=== PATIENT | male | born 1960 | race Caucasian/White ===

== ENCOUNTER 2019-09-06 10:37 | Outpatient (CLI) | payer OTHER, SELFPAY ==
--- NOTE | 2019-09-06 10:42 | CT_ITS ---
WS: [id number] CTA THORACIC TECHNIQUE: Contrast enhanced CTA of the thoracic aorta with coronal and sagittal reformatted images a nd maximum intensity projection (MIP) images. CLINICAL INFORMATION: THORACIC AORTIC ANEURYSM COMPARISON: CT chest 2018 DLP: 1518.[address] scans at [facility] use at least one of these dose optimization techniques: automat ed exposure control; mA and/or kV adjustment per patient size (includes targeted exams where dose is matched to clinical indication); or iterative reconstruction. FINDINGS: Noncontrast thoracic aorta is normal. No evidence of aortic dissection or intramural hematoma. Normal caliber thoracic aorta. Ascending thoracic aorta measures 3.8 x 3.9 CM. Aortic calcification. This i s unchanged since the outside CT from 2019. Mild aortic atheromatous disease. Coronary calcification. Great vessel origins are normal. No mediastinal or hilar lymphadenopathy. A few normal sized anterior mediastinal and peribronchial lymph nodes. Mild chronic emphysematous changes. Subsegmental atelecta sis right lung base. Fibrosis right lower lobe medially. Adrenal glands are normal. Mild diffuse fatt y infiltration the liver. Normal GE junction. Mild thoracic curve with thoracic kyphosis. Hypertrophi c changes thoracic spine. Tiny left renal cyst. CT/CT angio chest [id number] IMPRESSION: 1. Normal caliber thoracic aorta. Ascending thoracic aorta measures 3.8 x 3.9 cm this is AP by transverse. 2. Normal caliber descending thoracic aorta. 3. Mild aortic calcification with coronary calcification. 4. Mild chronic emphysematous changes. Subsegmental atelectasis right lung bas e. 5. No mediastinal or hilar lymphadenopathy. 6. Hypertrophic changes thoracic spine.
[2019-09-06] MEDS: iohexol 350 mg/mL 100 mL Btl IV (11:37)
== END 2019-09-06 10:38 | disposition home or self-care (01) ==
PROVIDERS: Family Provider Internal Medicine; PCP Internal Medicine; Visit Provider Thoracic Surgery (Cardiothoracic Vascular Surgery)
DX: I71.2 Thoracic aortic aneurysm, without rupture (principal); I70.0 Atherosclerosis of aorta
CPT/HCPCS: 71275; Q9967

== ENCOUNTER 2021-03-14 20:54 | Emergency (ER) | payer OTHER, SELFPAY ==
[2021-03-14 20:55] VITALS: BP 187/108; PULSE 76; RESP 18; TEMP 36.8; O2SAT 94; BMI 36.2
[2021-03-14 21:10] VITALS: BP 182/107; PULSE 78; O2SAT 96
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
[2021-03-14 21:32] LABS: Basophils # 0.1 10^3/uL (0.0-0.1); Basophils % 0.6 %; Eosinophils # 0.3 10^3/uL (0.0-0.8); Eosinophils % 2.3 %; Hematocrit 44.1 % (42.0-52.0); Hemoglobin 13.9 g/dL (11.7-16.6); Lymphocytes # 2.5 10^3/uL (0.8-4.8); Lymphocytes % 23.2 %; Mean Corpuscular HGB Conc 31.5 g/dL (30.0-36.0); Mean Corpuscular Hemoglobin 29.9 pg (28.0-34.0); Mean Corpuscular Volume 94.8 fl (80-94); Mean Platelet Volume 9.9 fL (7.4-10.4); Monocytes # 0.5 10^3/uL (0.2-0.9); Monocytes % 4.3 %; Neutrophils # 7.11 10^3/uL (1.8-7.7); Neutrophils % 65.8 %; Nucleated Red Blood Cells % 0 %; Platelet Count 256 10^3/cmm (130-400); Red Blood Count 4.65 10^6/uL (4.1-5.3); Red Cell Distribution Width 13.3 % (12.1-15.1); White Blood Count 10.8 10^3/uL (4.0-10.0)
[2021-03-14] MEDS: ondansetron 2 mg/ML SDV 2 mL 4 MG IVP (21:35)
[2021-03-14] MEDS: morphine 4 mg/mL SDV 1 mL IVP (21:35)
[2021-03-14 21:39] VITALS: BP 184/114; PULSE 73; O2SAT 95
[2021-03-14 21:43] LABS: Alanine Aminotransferase 15 U/L (0-41); Albumin Level 4.1 g/dL (3.5-5.2); Alkaline Phosphatase 87 IU/L (40-130); Anion Gap 14.8 (5-19); Aspartate Amino Transferase 17 U/L (0-40); Blood Urea Nitrogen 13 mg/dL (8-23); Calcium 8.3 mg/dL (8.5-10.5); Carbon Dioxide 22 mmol/L (22-29); Chloride 107 mmol/L (98-107); Globulin 3.2 g/dL (1.3-4.6); Glomerular Filtration Rate 86.1 mL/min (90-130); Glucose 117 mg/dL (65-115); Osmolality Calculated 291 mOsm/kg (285-295); Potassium 3.8 mmol/L (3.5-5.1); Sodium 140 mmol/L (136-145); Total Bilirubin 0.2 mg/dL (0.15-1.2); Total Protein 7.3 g/dL (6.6-8.7)
[2021-03-14 21:45] LABS: Alcohol Level < 10 mg/dL (0-10)
[2021-03-14] MEDS: iohexol 300 mg/mL 100 mL Btl IV (22:19)
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
[2021-03-14 23:03] VITALS: BP 170/135; PULSE 74; O2SAT 93
[2021-03-14 23:19] VITALS: BP 170/135; PULSE 73; O2SAT 94
== END 2021-03-14 23:21 | disposition home or self-care (01) ==
PROVIDERS: Emergency Provider Emergency Medicine
DX: S06.0X1A Concussion with loss of consciousness of 30 minutes or less, initial encounter (principal); S00.01XA Abrasion of scalp, initial encounter; Z79.82 Long term (current) use of aspirin; F17.210 Nicotine dependence, cigarettes, uncomplicated; V89.2XXA Person injured in unspecified motor-vehicle accident, traffic, initial encounter
CPT/HCPCS: 70450; 71260; 72125; 74177; 80053; 80307; 85025; 96374; 96375; 99283; J2270; J2405; Q9967

== ENCOUNTER 2021-12-03 16:31 | Emergency (ER) | payer OTHER, SELFPAY ==
[2021-12-03 16:41] VITALS: BP 154/86; PULSE 64; RESP 16; TEMP 36.7; O2SAT 98
[2021-12-03 16:53] VITALS: BP 143/95; PULSE 65; RESP 18; O2SAT 96
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
--- NOTE | 2021-12-04 15:38 | DCPLANNER ---
Addendum entered by Johanna Lewis 12/24/21 09:06: senior category manager received the following message from the neurology clinic regarding follow up appointment: Patient told me that he didn't have any memory problems only a hip replacement. We had him scheduled with Ruben on 12/19/21 @ 8:30 am. We have cancelled it. Addendum entered by Johanna Lewis 12/12/21 12:22: Patient has a follow up appointment scheduled for Sunday, December 19, 2021 at 8:30 with Ruben at neurology. Clinic will call patient with appointment information. Original Note: senior category manager had message to schedule a follow up appointment for patient neurology. senior category manager sent patients information to the front office staff at neurology. Patients information will be printed and reviewed. Clinic will call patient with appointment informatin. senior category manager also had message to schedule an outpatient MRI for patient. senior category manager cannot order the MRI for patient due to patient having [employer] insurance. senior category manager did refer patient to neurology, if the neurologist wants patient to have the MRI, it can be ordered from the neurologist. senior category manager did send patients information to the [place] for the authorization to be started.
== END 2021-12-03 17:50 | disposition home or self-care (01) ==
PROVIDERS: Emergency Provider Family Medicine
DX: R41.3 Other amnesia (principal); G44.89 Other headache syndrome; I10 Essential (primary) hypertension; F17.210 Nicotine dependence, cigarettes, uncomplicated
CPT/HCPCS: 99282

== ENCOUNTER 2022-04-12 09:19 | Emergency (ER) | payer OTHER, SELFPAY ==
[2022-04-12 09:26] VITALS: BP 152/95; PULSE 91; RESP 18; TEMP 36; O2SAT 94
[2022-04-12] MEDS: oxymetazoline 0.05% Nasal Spray 15 mL 2 SPRAY NOSTRIL-B (10:08)
[2022-04-12] MEDS: lidocaine 4% PF 5 mL INJ INJECTION (10:08)
[2022-04-12] MEDS: silver nitrate applicator 1 EACH TOPICAL (10:08)
--- NOTE | 2022-04-12 23:41 | ED_ITS ---
HPI - General Adult General: Chief complaint: General Medical Stated complaint: nose bleed Time Seen by Provider: 04/12/22 09:30 History of Present Illness: 61 yo male patient presents to ER with nose bleed pt states it started early this am. Pt arrives bleeding very minimal. Pt den ies any dizziness. Pt states he has allergies and has been in and out of the cold. pt denies any headache or any other complaints. Associated symptoms: Deny chest pain, confusion, diaphoresis, dyspnea, headache(s), malaise, nausea, rash, palpitations, syncope or vomiting Review of Systems Const: Denies: fever(s), chills, body aches, change in appetite, change in weight, fatigue, malaise or diaphoresis Eyes: Denies: change in vision, blurry vision, blind spots, photophobia, eye discomfort, eye discharge, eye redness, floaters or seeing flashes ENMT: Denies: throat pain, uvular edema, enlarged tonsils, odynophagia, hoarse ness, mouth pain, swelling of lips/tongue, oral sores, bleeding gums, dental pain, dry mouth, ear or mastoid pain, ear discharge, change in hearing, tinnitus, disequilibrium, nasal congestion, post nasal drip or sinus pain Card: Denies: chest pain, palpitations, irregular heart rhythm, edema, swelling of feet/ankles, lightheadedness, syncope, pre-syncope, dyspnea on e xertion, orthopnea, leg pain with exertion or acrocyanosis Resp: Denies: dyspnea, productive cough, non-productive cough, wheezing, stridor, pain on inspiration, change in phlegm color, hemoptysis or chest congestion GI: Denies: abdominal pain, nausea, vomiting, hematemesis, dysphagia, diarrhea, constipation, GI cramping, change in bowel habits or rectal pain : Denies: flank pain, dysuria, urinary frequency, urinary urgency, urinary hesitancy or hematuria Musc: Denies: neck pain, back pain, extremity pain, extremity swelling, joint pain, joint swelling, joint redness, joint warmth or deformity Skin/Breast: Denies: rash, pruritus, erythema, sores, new lesions, changes in skin color or dry skin Neuro: Denies: headache(s), numbness in extremities, weakness in extremities, sensory changes, lack of coordination, difficulty walking, frequent falls, dizziness, vertigo, confusion, behavioral changes, Slurred speech present, difficulty communicating thoughts or seizure-like activity Psych: Denies: anxiety, depression, suicidal ideation or homicidal ideation Endo: Denies: polyuria, polydipsia, tired all the time, cold intolerance, excessive sweating, flushing, hot flashes or heat intolerance Ibrahima/Lymph: Denies: easy bruising, easy bleeding, petechiae, purpura, enlarged lymph nodes or tender lymph nodes All/Imm: Denies: urticaria, throat swelling, tongue swelling, facial swelling, acute wheezing or itchy eyes PFSH ED PFSH: Medical History Hypertension Thoracic aortic aneurysm Thoracic aortic aneurysm without rupture Surgical History No pertinent past surgical history Family History Mother Diabetes Father Hypertension Social History Smoking and tobacco status: current every day smoker cigarettes Packs smoked per day: 0.5 Alcohol intake: current Alcohol intake frequency: 0-2 Drinks per Day Lives independently: Yes Household members: none Marital status: service: Yes Current occupational status: disabled Physical Exam Const: COMMON NORMALS: no acute distress, average body habitus, patient oriented x3, no limitations, healthy appearing, alert and well nourished HENMT: COMMON NORMALS: normocephalic, atraumatic, hearing grossly normal bilaterally, external ears normal, EAC's normal, TM's normal bilaterally, Normal external nose present and moist oral mucous membranes; nasal mucous membranes&turbinates abnorm (posterior left side nosebleed) HEAD & SCALP: normocephalic and atraumatic NOSE: Normal external nose present; nasal mucous membranes&turbinates abnorm (posterior left side nosebleed) EXTERNAL EAR: Yes external ears normal EXTERNAL AUDITORY CANAL: EAC's normal TYMPANIC MEMBRANE: TM's normal bilaterally THROAT: no uvular edema Eye: COMMON NORMALS: Equal, round and reactive pupils present PUPIL: Yes Equal, round and reactive pupils present Neck/C-Spine: COMMON NORMALS: full ROM and no lymphadenopathy Resp: COMMON NORMALS: normal respiratory effort Cardio: COMMON NORMALS: regular rate and regular rhythm RATE: regular rate RHYTHM: regular rhythm Neuro: COMMON NORMALS: patient oriented x3 SENSORIUM/ORIENTATION: Yes alert Skin: NARRATIVE SKIN EXAM: pink warm and dry Course Vital Signs: Vital signs: Vital Signs Temperature 96.8 F L 04/12/22 09:26 Pulse Rate 91 04/12/22 09:26 Respiratory Rate 18 04/12/22 09:26 Blood Pressure 152/95 04/12/22 09:26 Pulse Oximetry 94 04/12/22 09:26 MDM - General Adult Medical Decision Making Patient is well appearing non toxic and in no acute distress. 61 yo male patient presents to ER with nose bleed pt states it started early this am. Pt arrives bleeding very minimal. Pt denies any dizziness. Pt states he has allergies and has been in and out of the cold. pt denies any headache or any other complaints. Nasal tampon was applied with direct pressure. pt was observed for 30 minutes. Bleeding has stopped with no residual bleeding at this time. I discussed with patient home care as well as return precautions Discharge Plan Discharge Patient Disposition: Home Clinical Impression: Acute posterior epistaxis Condition: Stable Prescriptions: No Action amlodipine 5 mg tablet 5 mg PO DAILY aspirin 325 mg tablet 325 mg PO DAILY Discharge Orders: Discharge ED (Routine); Ordered 04/12/22 Ordered By: Lisa Guerra Referrals: [facility] [Primary Care Provider] - Discharge Diet: Advance as tolerated Discharge Activity: Increase activity as tolerated Patient Instructions: Nosebleed (ED), Opioid Safety, Pain Management Activity Restrictions/Additional Instructions: Please follow discharge instructions Please leave nasal tampon in place for 24 hours Nothing inside the nose Return to ER with any continued bleeding or concerns Coding Level of Care Code ED Clothes Designer for Navdeep Barlow
== END 2022-04-12 12:20 | disposition home or self-care (01) ==
PROVIDERS: Emergency Provider Registered Nurse
DX: R04.0 Epistaxis (principal); Z79.82 Long term (current) use of aspirin; I10 Essential (primary) hypertension; F17.210 Nicotine dependence, cigarettes, uncomplicated
CPT/HCPCS: 99283

== ENCOUNTER → 2024-05-23 13:36 | Outpatient (BNVA) | payer OTHER, SELFPAY | PROVIDERS: Visit Provider Internal Medicine Cardiovascular Disease | DX: R07.9 Chest pain, unspecified (principal) | CPT/HCPCS: 93005 ==

== ENCOUNTER 2024-06-05 06:48 | Outpatient (CLI) | payer OTHER, SELFPAY ==
[2024-06-05 07:34] VITALS: BMI 37.9
--- NOTE | 2024-06-05 07:37 | ECG_ITS ---
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 The perfusion scan will be documented separately. DATA: Baseline heart rate was 48 beats per minute. Baseline blood pressure was 156/90 millimeters of mercury. Target heart rate was 157. Maximum heart rate achieved was 67. which was 42% of the predicted target heart rate. Maximum blood pressure was 156/90 millimeters of mercury. The reason for ending the test was completion of the protocol. The patient did not experience any symptoms. ELECTROCARDIOGRAM: BASELINE: Sinus bradycardia normal axis. Otherwise, no ST-T changes suggestive of ischemia noted. No arrhythmia noted. EXERCISE: After Lexiscan injection, no ST-T changes suggestive of ischemic noted. No arrhythmia noted. CONCLUSION: Please note due to baseline abnormality of the EKG specificity and sensitivity of the EKG portion of LexiScan MIBI stress test will be low 1. EKG not suggestive of ischemia 2. Lexiscan injection unremarkable. 3. Perfusion scan will be documented separately. Electronically Signed On 06-25-2024 18:53:57 CDT by TEO THOMAS [email or web address]
--- NOTE | 2024-06-05 07:37 | NMCV_ITS ---
NM dov perf SPECT r/s* [id number] Ruben Fuchs Jr Age: 63 Gender: M : 1960 Exam Date: 06/05/2024 07:58 Ordering Phys: Teo Thomas MD ([email or web address]) Technologist: NIKKO Becerril Exam Location: [facility] [place] Indications: cp STRESS TEST [facility] IMAGE PROTOCOL Rest/Stress 1 Lexiscan Day Radiopharmaceutical Dose (mCi) Administration Site Administered by Rest: Tc-99m 10.7 IV Julee Tena AUTOMOTIVE PAINTER HELPER Sestamibi Stress:Tc-99m 33 IV Julee Tena, AUTOMOTIVE PAINTER HELPER Sestamibi Rest: 05-Jun-2024 60 Discovery 630 Stress: 05-Jun-2024 30 Discovery 630 0.4mg Lexiscan. Images obtained in supine and prone position. SPECT RESULTS Technical Quality: Good Raw Data Analysis: Normal Image Corrections: No attenuation or motion correction applied Summed Stress Score: 0 Summed Rest Score: 2 Summed Difference Score: 0 PERFUSION FINDINGS SPECT images demonstrate homogeneous tracer distribution throughout the myocardium. Attenuation artifact seen in the inferior wall. FUNCTIONAL RESULTS (calculated via Gated SPECT) Stress Image LV EF (%): 69 Stress EDV (mL):136 TID: 0.93 Stress ESV (mL):42 FUNCTIONAL FINDINGS: There is normal left ventricular systolic function. IMPRESSIONS 1. Normal myocardial perfusion imaging with no evidence of ischemia. 2. LV systolic function is normal Aldair Fortune MD (Electronically Signed) Final Date: 05 June 2024 11:14 S
[2024-06-05] MEDS: regadenoson 0.4 Mg/5 ml Syringe IVP (08:22)
[2024-06-05 08:36] VITALS: BP 140/81; PULSE 63
== END 2024-06-05 06:49 | disposition home or self-care (01) ==
PROVIDERS: Visit Provider Internal Medicine Cardiovascular Disease
DX: R06.02 Shortness of breath (principal)
CPT/HCPCS: 36415; 78452; 93017; 96374; A9500; J2785

== ENCOUNTER 2024-06-09 14:00 | Oncology outpatient (recurring) (ONCR) | payer OTHER, SELFPAY ==
[2024-05-17 09:40] LABS: Basophils # 0.1 10^3/uL (0.0-0.1); Eosinophils # 0.4 10^3/uL (0.0-0.8); Hematocrit 41.5 % (37-53); Lymphocytes # 2.5 10^3/uL (0.8-4.8); Lymphocytes % 35.2 %; Mean Corpuscular HGB Conc 32.3 g/dL (30-55); Mean Platelet Volume 9.3 fL (7.4-10.4); Monocytes # 0.4 10^3/uL (0.2-0.9); Monocytes % 6.1 %; Neutrophils # 3.78 10^3/uL (1.8-7.7); Neutrophils % 52.3 %; Nucleated Red Blood Cells % 0 %; Platelet Count 222 10^3/cmm (157-399); Red Blood Count 4.46 10^6/uL (3.85-5.65); Red Cell Distribution Width 13.4 % (12.1-15.1); White Blood Count 7.22 10^3/uL (3.29-11.43)
[2024-05-17 10:05] LABS: Homocysteine 12.26 umol/l (0-15)
[2024-05-17 10:08] LABS: Alanine Aminotransferase 11 U/L (0-41); Albumin Level 4.3 g/dL (3.5-5.2); Alkaline Phosphatase 79 U/L (40-130); Anion Gap 13.3 (5-19); Aspartate Amino Transferase 11 U/L (0-40); Blood Urea Nitrogen 16 mg/dL (8-23); Calcium 8.8 mg/dL (8.5-10.5); Carbon Dioxide 24 mmol/L (22-29); Chloride 108 mmol/L (98-107); Creatinine Clr Calc Pharmacy 118.6078; Ferritin 167 ng/mL (30-400); Globulin 3.2 g/dL (1.3-4.6); Glomerular Filtration Rate 97.6 mL/min (90-130); Glucose 102 mg/dL (65-115); Iron 55 ug/dL (59-158); Lactate Dehydrogenase 127 U/L (135-225); Osmolality Calculated 293 mOsm/kg (285-295); Potassium 4.3 mmol/L (3.5-5.1); Sodium 141 mmol/L (136-145); Total Bilirubin 0.4 mg/dL (0.15-1.2); Total Iron Binding Capacity 229 mcg/dl; Total Protein 7.5 g/dL (6.6-8.7); Unsaturated Iron Binding 174 ug/dL (112-347)
[2024-05-17 10:20] LABS: Vitamin B12 323 pg/mL (232-1245)
[2024-05-17 11:05] LABS: Folate Level 13.4 ng/mL (4.5-32.2)
[2024-05-17 11:34] LABS: Carcinoembryonic Antigen 1.7 ng/mL (0.0-4.7)
[2024-05-21 01:09] LABS: Methylmalonic Acid 331 nmol/L (69-390)
--- NOTE | 2024-06-01 12:00 | CT_ITS ---
WS: [id number] CT chest w con* [id number] HISTORY: malignant neoplasm of lower third esophagus TECHNIQUE: Axial imaging performed through the thorax. Coronal and sagittal reformats are submitted. All CT scans at [facility] use at least one of these dose optimization techniques: automated exposure control; mA and/or kV adjustment per patient size (includes targeted exams where dose is matched to clinical indication); or iterative reconstruction. CONTRAST: Omnipaque 350; 100 mL IV. DLP: 570.13 mGy.cm COMPARISON: 03/14/2021 Lungs and central airway: No pulmonary mass or pneumonia. No new nodules. Mild hyperexpansion secondary to emphysema. Pleura: Normal. No pleural effusion. Heart and pericardium: Mild cardiomegaly. No pericardial effusions. Mediastinum and gala: There are a few small mediastinal and hilar lymph nodes. Largest lymph node at the AP window measures 1.2 cm. Narrowing of the mid to distal esophageal lumen with asymmetric wall thickening to 0.7 cm distally along with a small hiatal hernia. No discrete well-defined mass identified. Vessels: Ectatic mildly aneurysmal ascending aorta to 4.5 cm. Mild atherosclerotic plaque. Scattered coronary artery calcifications. Normal size pulmonary artery. Chest wall and lower neck: No soft tissue masses. Upper abdomen: LEFT adrenal nodularity and mass measuring 1.3 x 1.8 cm. RIGHT adrenal gland is normal. Visualized liver is normal. Super renal abdominal aortic calcifications. Osseous structures: Thoracic spondylosis. No fracture. CT/CT chest w con* [id number] IMPRESSION: 1. No metastatic pulmonary nodules. 2. Indeterminate AP window lymph node at 1.2 cm. There are smaller mediastinal and hilar lymph nodes. 3. Mild asymmetric wall thickening of the mid to distal esophagus. As per hist ory patient has known esophageal cancer. 4. LEFT adrenal nodularity 1.3 x 1.8 cm. LEFT adrenal nodularity is new since 03/14/2021. Differential includes adenoma versus metastatic disease.
[2024-06-01] MEDS: iohexol 350 mg/mL 500 mL Btl (per mL) IV (12:07)
--- NOTE | 2024-06-06 10:00 | USCV_ITS ---
Ruben Fuchs Jr Age: 63 Gender: M : 1960 Exam Date: 06/06/2024 10:11 Ordering Phys: Teo Thomas MD ([email or web address]) Technologist: CT Exam Location: [facility] [place] Indication: sob BP: 128 / 68 HR: 47 Rhythm: Sinus Technical Quality: Adequate MEASUREMENTS (Male / Female) Normal Values 2D ECHO LVOT Diameter 2.2 cm LV Ejection Fraction MOD 4C 67.4 % LV Ejection Fraction MOD 2C 61.3 % LV Ejection Fraction 2C AL 61.1 % LA Diameter 3.6 cm RA Systolic Volume 4C AL 50.3 ml RA Systolic Volume 4C MOD 50.0 ml LA Sys Volume AL 45.0 cm cubed LA Sys Volume Index AL 18.9 cm cubed/m squared Aorta at Sinotubular Diameter 2.8 cm IVC Diameter 2.1 cm M-MODE LA Ao Ratio MM 1.3 AV Cusp Separation MM 2.3 cm DOPPLER AV Peak Velocity 153.0 cm/s LVOT Peak Velocity 130.0 cm/s AV Area Cont Eq vti 3.4 cm squared AV Area Cont Eq pk 3.3 cm squared MV Peak Velocity 88.0 cm/s MV Area PHT 2.3 cm squared Mitral E to A Ratio 1.1 TR Peak Velocity 181.0 cm/s TR Peak Gradient 13.1 mmHg TV Peak E Velocity 59.0 cm/s PV Peak Velocity 104.0 cm/s FINDINGS Left Ventricle Normal left ventricular size, systolic function and wall thickness, with no regional wall motion abnormalities. Left ventricular ejection fraction is estimated at 60 %. Grade II/IV diastolic dysfunction, moderately elevated filling pressures. Right Ventricle The right ventricle is normal in size and function. Right Atrium The right atrium is normal in size. Left Atrium The left atrium is normal in size. Mitral Valve Structurally normal mitral valve without significant stenosis or prolapse. There is no mitral regurgitation. Aortic Valve Mild aortic valve calcification. No aortic valve stenosis. Trace aortic valve regurgitation. Tricuspid Valve Structurally normal tricuspid valve without significant stenosis or regurgitation. Pulmonary artery systolic pressure is normal. Pulmonic Valve Structurally normal pulmonic valve without significant stenosis. There is no pulmonic regurgitation. Pericardium Normal pericardium without effusion. Aorta Normal ascending aorta dimension. IVC The inferior vena cava appears normal. CONCLUSIONS Normal left ventricular size, systolic function and wall thickness, with no regional wall motion abnormalities. Left ventricular ejection fraction is estimated at 60 %. Grade II/IV diastolic dysfunction, moderately elevated filling pressures. Mild aortic valve calcification. No aortic valve stenosis. Trace aortic valve regurgitation. There is no pericardial effusion. Right atrial pressure is around 5 mm of mercury. Teo Thomas MD (Electronically Signed) Final Date: 19 June 2024 10:36 S
[2024-06-07 12:20] LABS: Basophils # 0.1 10^3/uL (0.0-0.1); Basophils % 1.3 %; Eosinophils # 0.3 10^3/uL (0.0-0.8); Eosinophils % 4.6 %; Hematocrit 42.1 % (37-53); Lymphocytes # 2.9 10^3/uL (0.8-4.8); Lymphocytes % 41.3 %; Mean Corpuscular HGB Conc 32.5 g/dL (30-55); Mean Corpuscular Hemoglobin 29.9 pg (27-33); Mean Corpuscular Volume 91.9 fl (82-101); Mean Platelet Volume 8.7 fL (7.4-10.4); Monocytes # 0.4 10^3/uL (0.2-0.9); Monocytes % 5.8 %; Neutrophils # 3.34 10^3/uL (1.8-7.7); Neutrophils % 46.9 %; Nucleated Red Blood Cells % 0 %; Platelet Count 212 10^3/cmm (157-399); Red Blood Count 4.58 10^6/uL (3.85-5.65); Red Cell Distribution Width 13.7 % (12.1-15.1); White Blood Count 7.12 10^3/uL (3.29-11.43)
[2024-06-07 12:39] LABS: Alanine Aminotransferase 11 U/L (0-41); Albumin Level 4.1 g/dL (3.5-5.2); Alkaline Phosphatase 78 U/L (40-130); Anion Gap 13.1 (5-19); Aspartate Amino Transferase 12 U/L (0-40); Blood Urea Nitrogen 16 mg/dL (8-23); Calcium 8.6 mg/dL (8.5-10.5); Carbon Dioxide 24 mmol/L (22-29); Chloride 110 mmol/L (98-107); Creatinine Clr Calc Pharmacy 95.4685; Globulin 3.2 g/dL (1.3-4.6); Glomerular Filtration Rate 75.5 mL/min (90-130); Glucose 91 mg/dL (65-115); Lactate Dehydrogenase 130 U/L (135-225); Osmolality Calculated 297 mOsm/kg (285-295); Potassium 4.1 mmol/L (3.5-5.1); Sodium 143 mmol/L (136-145); Total Bilirubin 0.4 mg/dL (0.15-1.2); Total Protein 7.3 g/dL (6.6-8.7)
--- NOTE | 2024-06-09 14:00 | PETR_ITS ---
PROCEDURE INFORMATION: Exam: PET/CT Skull Base to Mid-thigh Exam date and time: 06/09/2024 1:57 PM Age: 63 years old Clinical indication: Condition or disease; Primary cancer: Malignant neoplasm of lower third of esophagus; Initial oncological staging assessment LABS AND CLINICAL REPORTS: Glucose: 85 mg/dl Treatment strategy for malignancy (PET staging): Initial Staging (PI) TECHNIQUE: Imaging protocol: Following at least four-hour fasting and following the injection of radiopharmaceutical, low dose CT images were obtained. Then, PET images were obtained. Attenuation corrected images were constructed using the CT scan. Fused images of PET and CT were reviewed. The standardized uptake values (SUV) reported below are maximum values within a region of interest, expressed in gm/ml. Exam includes orbital meatal line to mid-thigh. SUV normalization method: BodyWeight Radiopharmaceutical: 11.4 mCi F-18 FDG (Fluorodeoxyglucose), IV. Time of imaging post radiopharmaceutical administration: 45 minutes Injection site: left ac COMPARISON: CT chest w con* [id number] 06/01/2024 11:53 AM FINDINGS: Brain: Visualized brain has normal physiologic uptake. Pharynx: No abnormal uptake. Larynx: No abnormal uptake. Lungs, pleura and trachea: No abnormal uptake. Heart: Normal physiologic uptake. Mediastinal space: No abnormal uptake. Esophagus: FDG avid masslike thickening of the distal esophagus/gastroesophageal junction, maximum SUV 16.3, consistent with known esophageal carcinoma. Liver: No abnormal uptake. Gallbladder and biliary ducts: No abnormal uptake. Pancreas: No abnormal uptake. Spleen: No abnormal uptake. Adrenal glands: No abnormal uptake. Non FDG avid left adrenal 1.0 cm nodule with internal low attenuation, consistent with an adenoma. Kidneys and ureters: Normal physiologic uptake. Stomach and bowel: See Esophagus finding. No additional abnormal uptake in the bowel. Areas of physiologic uptake are visualized. Reproductive: Prostatomegaly. No abnormal uptake. Vasculature: Infrarenal abdominal aortic aneurysm measuring up to 3.8 cm, minimally increased since 2020, where it measured up to 3.6 cm. Lymph nodes: No abnormal uptake. No lymphadenopathy in the head, neck, chest, abdomen, pelvis, and extremities. Skeleton: No abnormal uptake in the visualized axial and appendicular skeleton. Bilateral L5 pars interarticularis defects with associated mild grade 1 anterolisthesis of L5 on S1. Soft tissues: No abnormal uptake in the visualized head, neck, chest, abdomen, pelvis, and extremities. PET/PET skull to thigh INIT [id number] IMPRESSION: 1. Masslike FDG avid thickening of the distal thoracic esophagus/gastroesophageal junction, consistent with known esophageal carcinoma. 2. No functional or anatomic evidence of metastatic disease within the head, neck, chest, abdomen or pelvis. 3. Infrarenal abdominal aortic aneurysm measuring up to 3.8 cm, minimally increased since 2020, where it measured up to 3.6 cm.
== END 2024-06-09 23:59 | disposition home or self-care (01) ==
PROVIDERS: Visit Provider Internal Medicine
DX: Z53.9 Procedure and treatment not carried out, unspecified reason (principal); C15.5 Malignant neoplasm of lower third of esophagus; I71.43 Infrarenal abdominal aortic aneurysm, without rupture
CPT/HCPCS: 36415; 71260; 78815; 80053; 82378; 82607; 82728; 82746; 83090; 83540; 83550; 83615; 83921; 85025; 93306; 99205; 99213; A9552

== ENCOUNTER 2024-06-15 13:48 | Outpatient (CLI) | payer OTHER, SELFPAY ==
--- NOTE | 2024-06-15 14:30 | MRR_ITS ---
PROCEDURE INFORMATION: Exam: MR Abdomen Without and With Contrast Exam date and time: 06/15/2024 2:12 PM Age: 63 years old Clinical indication: Condition or disease; Cancer; Other: Esophageal; Additional info: Malignant neoplasm of lower third of esophagus TECHNIQUE: Imaging protocol: Magnetic resonance imaging of the abdomen without and with contrast. Contrast material: MULTIHANCE; Contrast volume: 20 ml; Contrast route: INTRAVENOUS (IV); COMPARISON: CT abdomen pelvis w con* [id number] 03/13/2024 10:39 AM FINDINGS: Esophagus: There is mild thickening and enhancement of the distal thoracic esophagus/ GE junction without discrete mass. Liver: Mild diffuse hepatic steatosis. No significant focal liver pathology. Gallbladder and biliary ducts: No significant gallbladder pathology. No biliary dilatation. Pancreas: No significant pancreatic pathology. Spleen: No significant splenic pathology. Adrenal glands: Right adrenal gland is unremarkable. There is mild lobulated thickening of the left adrenal gland without dominant nodule corresponding to findings on recent CT. There is mild loss of signal on opposed phase gradient echo imaging Kidneys: No significant renal pathology. No significant right renal pathology. Left upper pole renal cortical lesion measuring 1.2 cm demonstrating mild T1 hyperintensity without definite enhancement most likely representing Bosniak category 2 cyst (series 900, image 41). Stomach and bowel: See Esophagus finding. Intraperitoneal space: No ascites. Vasculature: 3.7 cm abdominal aortic aneurysm. Lymph nodes: No evidence of lymphadenopathy. Bones/joints: No significant bony pathology. Soft tissues: Unremarkable. Other findings: Evaluation limited by respiratory degradation. MR/MR abdomen wo/w con* [id number] IMPRESSION: 1. Lobulated thickening of the left adrenal gland without discrete nodule corresponding to findings on prior CT. Given mild loss of signal on opposed phase gradient echo imaging and low Hounsfield unit readings on prior CT chest 06/01/2024 (-3 Hounsfield units) findings are most consistent with adenomatous hyperplasia. 2. Thickening of the distal thoracic esophagus/GE junction consistent with history of neoplasm. 3. Minor findings noted above including 3.7 cm abdominal aortic aneurysm and mild diffuse hepatic steatosis.
[2024-06-15] MEDS: gadobenate dimeglumine 20 mL vial IV (15:04)
== END 2024-06-15 13:49 | disposition home or self-care (01) ==
PROVIDERS: Visit Provider Internal Medicine
DX: C15.5 Malignant neoplasm of lower third of esophagus (principal); E27.8 Other specified disorders of adrenal gland; K22.89 Other specified disease of esophagus; I71.40 Abdominal aortic aneurysm, without rupture, unspecified; K76.0 Fatty (change of) liver, not elsewhere classified; N28.9 Disorder of kidney and ureter, unspecified
CPT/HCPCS: 74183

== ENCOUNTER 2024-07-04 10:24 | Oncology outpatient (recurring) (ONCR) | payer OTHER, SELFPAY ==
--- NOTE | 2024-06-13 08:45 | MR_ITS ---
WS: [id number] MRI OF THE PELVIS WITHOUT AND WITH GADOLINIUM ENHANCEMENT INDICATION: Esophageal cancer TECHNIQUE: Coronal T1 and STIR postgadolinium imaging was obtained. Axial T1 and T2 and sagittal T2 fat sat imaging. FINDINGS: Prostate enlargement measuring 4.7 cm. Heterogeneous prostate enhancement. Recommend correlation PSA. Evidence of mild bladder outlet obstruction with mild bladder wall thickening. Normal-appearing seminal vesicles. Partially visualized aneurysmal distal abdominal aorta measuring 3.5 x 3.5 cm better evaluated on the recent CT. Few sigmoid diverticuli. Normal bone marrow signal in the bony pelvis. 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 Normal pubic rami. No pelvic or inguinal lymphadenopathy. Fat-containing LEFT inguinal hernia. MR/MR pelvis wo/w con [id number] IMPRESSION: 1. Enlarged heterogeneously enhancing prostate. Recommend correlation PSA. 2. No pelvic or inguinal lymphadenopathy. 3. Normal bone marrow signal in the pelvic bony structures. 4. No evidence of metastatic disease in the pelvis. 5. 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
--- NOTE | 2024-07-04 13:25 | N.ONRAD NP_ITS ---
Radiation Oncology New Patient Visit Patient: Ruben Fuchs Jr MR#: [id number] : 1960 Age: 63 Sex: Male Dictated by: Dr. Hue Mills Date of Service: 07/04/2024 Referring Physician(s) : Praveen Diagnosis: C15.9 - malignant neoplasm of esophagus, unspecified, Diagnosed 07/04/2024 (active). Radiotherapy to date: Summary > No prior radiation therapy. Chief Complaint / History of Present Illness: Patient is a 63-year-old gentleman who has been known to have an esophageal cancer at least since February. He had records from the [place] which showed that it had some epigastric pain and he had a scope done at the [place] in February which was positive. This was done on February 25, 2024. The scope showed that it there was a lesion between 38 and 43 cm from the incisors. It was positive for adenocarcinoma. His stage at that time was a T3 N0 grade 1 stage IIa. He has visited with medical oncology and had a PET scan which showed that he had no other abnormalities. He is here today to discuss the radiation portion of his treatment. He is actually gained weight since his biopsy. Apparently since his biopsy he is able to swallow better. Current Medications: amlodipine 7.5 mg PO TID aspirin 325 mg PO DAILY atorvastatin (Lipitor) 20 mg PO DAILY cholecalciferol (vitamin D3) 25 mcg PO DAILY hydroxyzine HCl 50 mg PO TID PRN loratadine (Allergy Relief (loratadine)) 10 mg PO DAILY pantoprazole (Protonix) 40 mg PO DAILY Allergies: No Known Allergies Allergy (Verified 06/21/24 11:03) Medical History: Diabetes, chronic headaches, osteoarthritis, DJD, peptic ulcer disease, hide Parkinson's disease no history of collagen vascular disease. No previous radiation therapy. Thoracic aortic aneurysm Hypertension Thoracic aortic aneurysm without rupture Surgical History: Hernia repair and aortic aneurysm Family History: Mother Diabetes Father Hypertension Social History: Smoking and tobacco/nicotine status: current every day tobacco/nicotine user cigarettes Packs smoked per day: 1 Years cigarettes smoked: 50 Alcohol intake: current Alcohol intake frequency: holidays/special occasions only Substance/Drug Use: former Date of last use: 1 YEAR AGO Lives independently: Yes Household members: none Marital status: service: Yes Current occupational status: disabled Current Complaints / Review of Systems: . Vital Signs: Performed on 07/04/2024 10:41 AM BMI - 33.194 kg/m2 (high), Height - 71 in, Weight - 238 lbs, Temperature - 97 f, Pulse - 69 /min, Respiration - 17 /min, O2 Sat - 97 %, Pain - 0, Fatigue - 0 and BP - 147/ 80 mm(hg)(high/). Physical Exam: General: Patient is in no apparent distress. He is alone today. HEENT: Normocephalic atraumatic. Pupils are equal, sclera clear, extraocular muscles intact Pulmonary: Respiratory rate is regular nonlabored Cardiovascular: Regular rate and rhythm Abdomen: Moderately protuberant android pattern Extremities: Without obvious lymphedema or edema Skin: Warm and dry Neurological: He has a tremor in the left hand and arm. He is alert and oriented to place. He declares that he does not remember things very well. Psych: Affect appropriate for current situation Performance Status: 80 Pathology: Primary, c15.9 - malignant neoplasm of esophagus, unspecified, Diagnosed 07/04/2024 (active) . Lab: Imaging: See HPI Impression: Adenocarcinoma the esophagus Plan: I reviewed with the patient the role of radiation and esophageal cancer. We discussed the simulation process. We reviewed the risks and side effects both acute and long-term. We discussed the planning involved and the use of chemotherapy along with the radiation. He had no additional questions. I did ask him to write them down if he should think of something at home. This point we will proceed with simulation and get his treatment started soon as possible coordinated with his chemotherapy. Signed by: 07/04/2024 1:23:32 PM <<Signature on File>> Time spent with patient:45 CPT Code: * CPT Code: *
== END 2024-07-10 23:59 | disposition home or self-care (01) ==
PROVIDERS: Visit Provider Radiology Radiation Oncology
DX: Z51.0 Encounter for antineoplastic radiation therapy (principal); C15.5 Malignant neoplasm of lower third of esophagus
CPT/HCPCS: 72197; 77300; 77301; 77334; 77338; 77470; 99205; 99213

== ENCOUNTER → 2024-07-06 08:14 | Outpatient (BNVA) | payer OTHER, SELFPAY | PROVIDERS: Referring Provider Internal Medicine; Visit Provider Student in an Organized Health Care Education/Training Program | DX: Z95.828 Presence of other vascular implants and grafts (principal); C15.5 Malignant neoplasm of lower third of esophagus | CPT/HCPCS: 99204 ==

== ENCOUNTER → 2024-07-11 09:56 | Day surgery (SDC) | payer OTHER, SELFPAY ==
[2024-07-11] VITALS (7 sets, daily range): BP systolic 147–158; BP diastolic 85–105; PULSE 53–60; RESP 18–22; TEMP 36.3–36.6; O2SAT 95–100; BMI 33.0
--- NOTE | 2024-07-11 10:15 | SC_ITS ---
WS: [id number] C-arm FL for CVA 03369 REASON FOR EXAM: Port placement FINDINGS: Chemotherapy infusion port over the right chest with trans right IJ infusion catheter. Moderately acute angle of the catheter at the venotomy site. Tip of the catheter is in the distal SVC. No pneumothorax. SC/C-arm FL for CVA 69609 IMPRESSION: Right chemotherapy infusion port and infusion catheter placement as above.
[2024-07-11] MEDS: sodium chloride 0.9% 1,000 ML 30 ML IV (10:43)
--- NOTE | 2024-07-11 12:14 | ANES.PREANE2 ---
Pre-Anesthetic Assessment Height/Weight: Height 1.8 m Weight 107.501 kg Temp Pulse Resp BP Pulse Ox O2 Del Method 97.9 F 60 18 147/105 95 Room Air 07/11/24 10:07/11/24 10:07/11/24 10:07/11/24 10:07/11/24 10:07/11/24 10:31 Operation Date: 07/11/24 12:30 Proposed Procedures p Portacath Placement 86387. C15.5(Not Applicable) - Jose De La Fuente MD Familial anesthetic complications: None Was Beta Yeny taken within 24 hours: N/A Was Clonidine taken within 24 hours: N/A Last intake: Intake Last Liquid Date 07/11/24 Last Liquid Time 09:30 Last Solid Date 07/10/24 Last Solid Time 22:00 Social Tobacco and No alcohol Exam alert, oriented x 3, clear to auscultation bilaterally and regular rate & rhythm Airway Mallampati: Class III CV/HEM Coronary Artery Disease (listed in history but normal echo and stress test) and Hypertension GI esophageal cancer Anesthetic Plan ASA status: 4 Anesthesia: MAC Risk of > 500 ml blood loss (7ml/kg in children): No Medications/Allergies Home Medications ?Medication ?Instructions ?Recorded ?Confirmed ?Last Taken ?Type aspirin 325 mg tablet 325 mg PO DAILY 09/14/19 07/10/24 07/10/24 History cholecalciferol (vitamin D3) 25 25 mcg PO DAILY 05/17/24 07/10/24 07/10/24 History mcg (1,000 unit) capsule atorvastatin 20 mg tablet (Lipitor) 20 mg PO DAILY 05/23/24 07/10/24 07/10/24 History hydroxyzine HCl 50 mg tablet 50 mg PO TID PRN Anxiety 05/23/24 07/10/24 Unknown History loratadine 10 mg tablet (Allergy 10 mg PO DAILY 05/23/24 07/10/24 07/10/24 History Relief (loratadine)) amlodipine 5 mg tablet 2.5 mg PO TID 06/07/24 07/11/24 07/11/24 History lorazepam 1 mg tablet 0.5 - 1 mg (0.5 - 1 x 1 mg) PO Q6H 06/21/24 07/10/24 Unknown Rx PRN severe nausea #30 tabs ondansetron HCl 4 mg tablet 4 mg PO Q6H PRN nausea and 06/21/24 07/10/24 Unknown Rx vomiting #30 tabs prochlorperazine maleate 10 mg 10 mg PO Q4H PRN mild nausea #30 06/21/24 07/11/24 Unknown Rx tablet (Compazine) tabs Allergies Allergy/AdvReac Type Severity Reaction Status Date / Time No Known Allergies Allergy Verified 07/10/24 15:18 Current Medications Generic Name Dose Route Start Last Admin Trade Name Freq PRN Reason Stop Dose Admin Sodium Chloride 1,000 mls @ 30 mls/hr 07/11/24 10:15 07/11/24 10:43 Sodium Chloride 0.9% IV 07/12/24 10:14 30 mls/hr .Q24H JOY Administration PFSH Anesthesia Medical History Thoracic aortic aneurysm Hypertension Thoracic aortic aneurysm without rupture Surgical History No pertinent past surgical history Family History Mother Diabetes Father Hypertension Social History Smoking and tobacco/nicotine status: current every day tobacco/nicotine user cigarettes Packs smoked per day: 1 Years cigarettes smoked: 50 Alcohol intake: current Alcohol intake frequency: holidays/special occasions only Substance/Drug Use: former Date of last use: 1 YEAR AGO Lives independently: Yes Household members: none Marital status: service: Yes Current occupational status: disabled Data Anesthesia Cardiac Studies: Echocardiogram 06/06/24 Sestamibi Stress Test (Cardiology) 06/05/24
--- NOTE | 2024-07-11 12:51 | W.PM.OPSUD ---
Surgery/Procedure H&P Update DATE OF PROCEDURE: July 11, 2024 DATE H&P PERFORMED: 07/06/24 H&P UPDATE INFORMATION: I have reviewed H&P completed within last 30 days, I have examined patient prior to procedure and No changes to prior documentation PLANNED PROCEDURE: Operation Date: 07/11/24 12:30 Proposed Procedures p Portacath Placement 54987. C15.5(Not Applicable) - Jose De La Fuente MD
[2024-07-11] MEDS: heparin, porcine 1,000 unit/mL INJ 10 mL 10000 UNIT IRRIGATION (13:15)
[2024-07-11] MEDS: BUPivacaine 0.25% INJ 10 mL INJECTION (13:15)
[2024-07-11] MEDS: lidocaine-epi 1% 20 mL INJ INJECTION (13:15)
--- NOTE | 2024-07-11 13:39 | P.OP_ITS ---
Operative Report Date of procedure: July 11, 2024 Pre-op diagnosis: Esophageal cancer Post-op diagnosis: same Post-op findings: Port-a-cath placement. Tip of catheter at atriocaval junction confirmed by intraoperative interpretation of fluoroscopy. Implants: Port-a-cath Specimens removed/disposition: NA Pathology: none sent Surgeon: Jose De La Fuente MD Marine Resource Economist: JESS Anesthesia: MAC Estimated blood loss (mL): 10 Complications: NA Findings: Port-a-cath placement. Tip of catheter at atriocaval junction confirmed by intraoperative interpretation of fluoroscopy. Condition: stable Disposition: same day Brief History: 63 yo male PMH esophageal cancer. Discussed risks and benefits and patient agreed to proceed with port placement. Procedure: Patient was brought into the operating room and a timeout was carried out. Procedure was done under MAC. Patient was placed supine with the arms tucked and in Trendelenburg. Patient was prepped and draped in the usual sterile fashion. Using ultrasound guidance the right internal jugular vein was accessed. A guidewire was then placed down to the atriocaval junction using fluoroscopy. The finder needle was removed and the guidewire was secured. I then turned my attention to creating a pocket over the right chest. Make sure to locally infiltrated using plain lidocaine and bupivacaine at the site of the pocket and throughout the tunnel site. I confirmed adequate hemostasis at the pocket. I then proceeded to place the port that was already preassembled and flushed with heparinized saline and the chest pocket. I tunneled the catheter from the chest to the neck at the site where I accessed the internal jugular vein. I measured and adjusted the length of the catheter so it would reach the atrial caval junction. At this point, I used a dilator to dilate the tract into the internal jugular vein using fluoroscopy. I removed the guidewire and proceeded to thread the central venous catheter through the introducer. In the process, I removed the sheath as a completely pushed the catheter into the internal jugular vein. I then confirmed adequate placement of the catheter by performing intraoperative interpretation of fluoroscopy. The tip of the catheter was confirmed to be placed in the atriocaval junction. There were no kinks noted throughout the trajectory of the catheter. I then proceeded to test the port and was satisfied with its functionality. I proceeded to flushed the catheter without any issues. I then hep-locked the port. Skin was closed using deep dermal 3-0 Vicryl, subcuticular 4-0 Monocryl, and Dermabond. Patient was then transferred to PACU without any complications.
--- NOTE | 2024-07-11 14:30 | ANE.PACU2 ---
Inpatient post-anesthesia follow up: Airway intact: Yes Vital signs: Temperature 97.7 F Pulse Rate 56 Respiratory Rate 18 Blood Pressure 157/94 Pulse Oximetry 100 Oxygen Delivery Me thod Room Air Oxygen Flow Rate 6 Fraction of Inspir ed Oxygen Hydration adequate: Yes Nausea and vomiting: No Pain level: 1 Mental status: Baseline
== END | disposition home or self-care (01) ==
PROVIDERS: PCP Family Medicine; Visit Provider Student in an Organized Health Care Education/Training Program
PROC: (CPT 36561; principal; 2024-07-11 12:30)
DX: C15.5 Malignant neoplasm of lower third of esophagus (principal); I10 Essential (primary) hypertension; F17.210 Nicotine dependence, cigarettes, uncomplicated; Z79.82 Long term (current) use of aspirin; Z79.899 Other long term (current) drug therapy
CPT/HCPCS: 36561; 77001; C1788; J1644; J2250; J2704; J3490; J7030; J9999

== ENCOUNTER → 2024-07-24 07:41 | Outpatient (BNVA) | payer OTHER, SELFPAY | PROVIDERS: PCP Family Medicine; Visit Provider Student in an Organized Health Care Education/Training Program | DX: C15.5 Malignant neoplasm of lower third of esophagus (principal) | CPT/HCPCS: 99213 ==

== ENCOUNTER 2024-08-04 07:45 | Oncology outpatient (recurring) (ONCR) | payer OTHER, SELFPAY ==
[2024-07-18 15:27] LABS: Basophils # 0.1 10^3/uL (0.0-0.1); Eosinophils # 0.2 10^3/uL (0.0-0.8); Hematocrit 40.9 % (37-53); Mean Corpuscular HGB Conc 33.5 g/dL (30-55); Mean Corpuscular Hemoglobin 30.3 pg (27-33); Mean Corpuscular Volume 90.5 fl (82-101); Mean Platelet Volume 9.4 fL (7.4-10.4); Monocytes # 0.4 10^3/uL (0.2-0.9); Monocytes % 4.6 %; Neutrophils # 4.05 10^3/uL (1.8-7.7); Neutrophils % 53.1 %; Nucleated Red Blood Cells % 0 %; Platelet Count 209 10^3/cmm (157-399); Red Blood Count 4.52 10^6/uL (3.85-5.65); Red Cell Distribution Width 13.2 % (12.1-15.1); White Blood Count 7.62 10^3/uL (3.29-11.43)
[2024-07-18 15:46] LABS: Alanine Aminotransferase 12 U/L (0-41); Albumin Level 4.3 g/dL (3.5-5.2); Alkaline Phosphatase 77 U/L (40-130); Anion Gap 12.7 (5-19); Aspartate Amino Transferase 15 U/L (0-40); Blood Urea Nitrogen 9 mg/dL (8-23); Calcium 8.7 mg/dL (8.5-10.5); Carbon Dioxide 24 mmol/L (22-29); Chloride 106 mmol/L (98-107); Creatinine Clr Calc Pharmacy 134.1658; Globulin 3.3 g/dL (1.3-4.6); Glomerular Filtration Rate 113.9 mL/min (90-130); Glucose 107 mg/dL (65-115); Osmolality Calculated 287 mOsm/kg (285-295); Potassium 3.7 mmol/L (3.5-5.1); Sodium 139 mmol/L (136-145); Total Bilirubin 0.4 mg/dL (0.15-1.2); Total Protein 7.6 g/dL (6.6-8.7)
[2024-07-18 15:57] LABS: Carcinoembryonic Antigen 1.7 ng/mL (0.0-4.7)
[2024-07-19 09:01] VITALS: BP 132/73; PULSE 54; RESP 17; TEMP 36.6; O2SAT 96
[2024-07-19] MEDS: dextrose 5% 250 ML 75 ML IV (10:15)
[2024-07-19] MEDS: dexamethasone 4 mg/mL INJ 5 mL 12 MG IVP (10:16)
[2024-07-19] MEDS: palonosetron 0.25 mg/5 mL SDV IVP (10:24)
[2024-07-19] MEDS: oxaliplatin 192 MG in dextrose 5% 250 ML 144.2 MG IV (11:13)
[2024-07-19] MEDS: leucovorin 910 MG in dextrose 5% 250 ML 125 MG IV (11:13)
[2024-07-19 13:23] VITALS: BP 152/86; PULSE 58; TEMP 36.4; O2SAT 94
[2024-07-19] MEDS: fluorouraciL 50 mg/ml MDV 100 mL 900 MG IVP (13:27)
[2024-07-19] MEDS: fluorouraciL 3,650 MG, elastomeric pump 1 PUMP in sodium chloride 0.9% (100 ml) 19 ML IV (13:28)
--- NOTE | 2024-07-25 10:58 | ONCRAD TMN_ITS ---
Radiation Oncology Weekly Treatment Management Patient: Jef Miranda> MR#: [id number] : 1960> Attending Physician: Colten Sherman Date of Service: 07/25/2024 Referring Physician(s) : Diagnosis: C15.9 - Malignant neoplasm of esophagus, unspecified, Diagnosed 07/04/2024 (Active) Radiotherapy to date: Course: esophagus, Treatment Site: Esophageal Ca, Ref. ID: [id number], Energy: 6X, Dose/Fx (cGy): 200, #Fx: , Dose Correction (cGy): 0, Total Dose Delivered (cGy): 1,000, Start Date: 07/19/2024, Elapsed Days: 6 Reason for visit: The patient is being seen today as part of their regularly scheduled weekly on treatment visits to assess for acute toxicities from radiotherapy. Review of Systems: He had cycle 1 of chemo last week. He has had 5 out of 25 fractions to the esophagus. Labs adequate last week. Vital Signs: Performed on 07/25/2024 10:03 AM BMI - 32.916 kg/m2 (high), Height - 71 in, Weight - 236 lbs, Temperature - 97.4 f, Pulse - 51 /min (low), Respiration - 18 /min, O2 Sat - 99 %, Pain - 0, Fatigue - 0 and BP - 131/ 77 mm(hg). Physical Exam: Alert and oriented and answers questions appropriately. Cycle 2 is scheduled for 08/02/2024. He will undergo labs tomorrow. Imaging: Radiation therapy imaging related to accurate target localization (i.e. KV, MV and CBCT) was reviewed. Appropriate changes, if any, were made to ensure treatment accuracy. Plan: Continue XRT Labs to be drawn tomorrow Cycle 2 chemo scheduled for 08/02/2024. Surgical evaluation to be reconsidered after completion of chemoradiation. Signed by: Colten Sherman 07/25/2024 10:56:26 AM
[2024-07-26 08:42] VITALS: BP 136/80; PULSE 60; RESP 18; TEMP 37; O2SAT 94
[2024-07-26 09:12] LABS: Basophils % 0.8 %; Eosinophils # 0.4 10^3/uL (0.0-0.8); Eosinophils % 7.7 %; Hematocrit 38.5 % (37-53); Lymphocytes # 1.4 10^3/uL (0.8-4.8); Lymphocytes % 27.2 %; Mean Corpuscular HGB Conc 32.7 g/dL (30-55); Mean Corpuscular Hemoglobin 30.8 pg (27-33); Mean Corpuscular Volume 94.1 fl (82-101); Mean Platelet Volume 9.8 fL (7.4-10.4); Monocytes # 0.3 10^3/uL (0.2-0.9); Monocytes % 4.8 %; Neutrophils % 59.3 %; Nucleated Red Blood Cells % 0 %; Platelet Count 149 10^3/cmm (157-399); Red Blood Count 4.09 10^6/uL (3.85-5.65); Red Cell Distribution Width 13.3 % (12.1-15.1); White Blood Count 5.22 10^3/uL (3.29-11.43)
[2024-07-26 09:29] LABS: Alanine Aminotransferase 11 U/L (0-41); Albumin Level 3.8 g/dL (3.5-5.2); Alkaline Phosphatase 75 U/L (40-130); Anion Gap 12.6 (5-19); Aspartate Amino Transferase 10 U/L (0-40); Blood Urea Nitrogen 10 mg/dL (8-23); Calcium 8.2 mg/dL (8.5-10.5); Carbon Dioxide 25 mmol/L (22-29); Chloride 108 mmol/L (98-107); Creatinine Clr Calc Pharmacy 134.1658; Globulin 2.8 g/dL (1.3-4.6); Glomerular Filtration Rate 113.9 mL/min (90-130); Glucose 136 mg/dL (65-115); Osmolality Calculated 295 mOsm/kg (285-295); Potassium 3.6 mmol/L (3.5-5.1); Sodium 142 mmol/L (136-145); Total Bilirubin 0.2 mg/dL (0.15-1.2); Total Protein 6.6 g/dL (6.6-8.7)
--- NOTE | 2024-08-01 16:45 | ONCRAD TMN_ITS ---
Radiation Oncology Weekly Treatment Management Patient: Ruben Fuchs Jr MR#: [id number] : 1960 Attending Physician: Dr. Wilmar Helton Date of Service: 08/01/2024 Referring Physician(s) : Diagnosis: C15.9 - Malignant neoplasm of esophagus, unspecified, Diagnosed 07/04/2024 (Active) Radiotherapy to date: Course: esophagus, Treatment Site: Esophageal Ca, Ref. ID: [id number], Energy: 6X, Dose/Fx (cGy): 200, #Fx: , Dose Correction (cGy): 0, Total Dose Delivered (cGy): 2,000, Start Date: 07/19/2024, Elapsed Days: 13 Reason for visit: The patient is being seen today as part of their regularly scheduled weekly on treatment visits to assess for acute toxicities from radiotherapy. Review of Systems: Doing ok with no N or V. Eating and swallowing ok. Variable energy level. Still smoking ??? ppd. Vital Signs: Performed on 08/01/2024 11:07 AM BMI - 32.943 kg/m2 (high), Height - 71 in, Weight - 236.2 lbs, Temperature - 97.1 f, Pulse - 56 /min (low), Respiration - 18 /min, O2 Sat - 98 %, Pain - 0, Fatigue - 0 and BP - 146/ 94 mm(hg)(high). Physical Exam: Imaging: Radiation therapy imaging related to accurate target localization (i.e. KV, MV and CBCT) was reviewed. Appropriate changes, if any, were made to ensure treatment accuracy. Plan: Good tolerance of treatment. Continue as planned. Begged him to quit smoking. Signed by: Dr. Wilmar Helton 08/01/2024 4:44:19 PM
[2024-08-02 07:35] LABS: Eosinophils # 0.2 10^3/uL (0.0-0.8); Hematocrit 40.6 % (37-53); Lymphocytes % 25.8 %; Mean Corpuscular HGB Conc 32.3 g/dL (30-55); Mean Corpuscular Hemoglobin 30.3 pg (27-33); Mean Corpuscular Volume 93.8 fl (82-101); Mean Platelet Volume 9.7 fL (7.4-10.4); Monocytes # 0.3 10^3/uL (0.2-0.9); Neutrophils % 59.9 %; Nucleated Red Blood Cells % 0 %; Platelet Count 136 10^3/cmm (157-399); Red Blood Count 4.33 10^6/uL (3.85-5.65); Red Cell Distribution Width 14.1 % (12.1-15.1)
[2024-08-02 07:47] LABS: Alanine Aminotransferase 13 U/L (0-41); Albumin Level 4.2 g/dL (3.5-5.2); Alkaline Phosphatase 82 U/L (40-130); Anion Gap 11.6 (5-19); Aspartate Amino Transferase 12 U/L (0-40); Blood Urea Nitrogen 10 mg/dL (8-23); Calcium 8.3 mg/dL (8.5-10.5); Carbon Dioxide 26 mmol/L (22-29); Chloride 108 mmol/L (98-107); Creatinine Clr Calc Pharmacy 134.4432; Globulin 2.7 g/dL (1.3-4.6); Glomerular Filtration Rate 113.9 mL/min (90-130); Glucose 184 mg/dL (65-115); Osmolality Calculated 298 mOsm/kg (285-295); Potassium 3.6 mmol/L (3.5-5.1); Sodium 142 mmol/L (136-145); Total Bilirubin 0.4 mg/dL (0.15-1.2); Total Protein 6.9 g/dL (6.6-8.7)
[2024-08-02] MEDS: dexamethasone 4 mg/mL INJ 5 mL 12 MG IVP (08:56)
[2024-08-02] MEDS: dextrose 5% 250 ML 75 ML IV (08:56)
[2024-08-02] MEDS: palonosetron 0.25 mg/5 mL SDV IVP (08:57)
[2024-08-02] MEDS: leucovorin 910 MG in dextrose 5% 250 ML 125 MG IV (09:49)
[2024-08-02] MEDS: oxaliplatin 192 MG in dextrose 5% 250 ML 144.2 MG IV (09:49)
[2024-08-02] MEDS: fluorouraciL 50 mg/ml MDV 100 mL 900 MG IVP (11:59)
[2024-08-02] MEDS: fluorouraciL 3,650 MG, elastomeric pump 1 PUMP in sodium chloride 0.9% (100 ml) 19 ML IV (12:00)
[2024-08-02 12:43] VITALS: BP 151/87; PULSE 61; RESP 18; TEMP 36.7; O2SAT 96
== END 2024-08-04 11:55 | disposition home or self-care (01) ==
PROVIDERS: Internal Medicine; Nurse Practitioner Family; PCP Family Medicine; Visit Provider Radiology Radiation Oncology
DX: Z51.0 Encounter for antineoplastic radiation therapy (principal); C15.5 Malignant neoplasm of lower third of esophagus; Z45.1 Encounter for adjustment and management of infusion pump; Z79.899 Other long term (current) drug therapy
CPT/HCPCS: 36415; 36591; 77336; 77386; 80053; 82378; 85025; 96367; 96368; 96375; 96409; 96411; 96413; 96415; 96416; 96523; 99024; 99213; 99214; 99215; J0640; J1100; J2469; J7060; J9190; J9263

== ENCOUNTER 2024-08-09 10:10 | Oncology outpatient (recurring) (ONCR) | payer OTHER, SELFPAY ==
--- NOTE | 2024-08-08 10:58 | ONCRAD TMN_ITS ---
Radiation Oncology Weekly Treatment Management Patient: Jef Bellamy MR#: [id number] : 1960> Attending Physician: Colten Sherman Date of Service: 08/08/2024 Referring Physician(s) : Diagnosis: C15.9 - Malignant neoplasm of esophagus, unspecified, Diagnosed 07/04/2024 (Active) Radiotherapy to date: Course: esophagus, Treatment Site: Esophageal Ca, Ref. ID: [id number], Energy: 6X, Dose/Fx (cGy): 200, #Fx: , Dose Correction (cGy): 0, Total Dose Delivered (cGy): 3,000, Start Date: 07/19/2024, Elapsed Days: 20 Reason for visit: The patient is being seen today as part of their regularly scheduled weekly on treatment visits to assess for acute toxicities from radiotherapy. Review of Systems: Able to tolerate larger bites without much difficulty. Still smoking half a pack per day. Vital Signs: Performed on 08/08/2024 10:09 AM BMI - 32.748 kg/m2 (high), Height - 71 in, Weight - 234.8 lbs, Temperature - 97.3 f, Pulse - 62 /min, Respiration - 18 /min, O2 Sat - 94 % (low), Pain - 0, Fatigue - 0 and BP - 133/ 83 mm(hg). Physical Exam: AAOx3. Skin intact. Imaging: Radiation therapy imaging related to accurate target localization (i.e. KV, MV and CBCT) was reviewed. Appropriate changes, if any, were made to ensure treatment accuracy. Plan: Continue XRT and chemotherapy. Signed by: Colten Sherman 08/08/2024 10:57:50 AM
== END 2024-08-09 23:59 | disposition home or self-care (01) ==
PROVIDERS: PCP Family Medicine; Visit Provider Radiology Radiation Oncology
DX: Z51.0 Encounter for antineoplastic radiation therapy (principal); C15.5 Malignant neoplasm of lower third of esophagus; F17.210 Nicotine dependence, cigarettes, uncomplicated
CPT/HCPCS: 77386; 99024

== ENCOUNTER 2024-09-06 08:57 | Oncology outpatient (recurring) (ONCR) | payer OTHER, SELFPAY ==
--- NOTE | 2024-08-14 10:03 | ONCRAD TMN_ITS ---
Radiation Oncology Weekly Treatment Management Patient: Ruben Fuchs Jr MR#: [id number] : 1960 Attending Physician: Colten Sherman Date of Service: 08/14/2024 Referring Physician(s) : Diagnosis: C15.9 - Malignant neoplasm of esophagus, unspecified, Diagnosed 07/04/2024 (Active) Radiotherapy to date: Course: esophagus, Treatment Site: Esophageal Ca, Ref. ID: [id number], Energy: 6X, Dose/Fx (cGy): 200, #Fx: , Dose Correction (cGy): 0, Total Dose Delivered (cGy): 3,800, Start Date: 07/19/2024, Elapsed Days: 26 Reason for visit: The patient is being seen today as part of their regularly scheduled weekly on treatment visits to assess for acute toxicities from radiotherapy. Review of Systems: Chemotherapy on . Patient had bouts of nausea over the weekend but this is resolved. He is lost 3 pounds since last visit. He states he does not go back for seconds now as he gets GERD from it. Labs adequate. Vital Signs: Performed on 08/14/2024 9:56 AM BMI - 32.302 kg/m2 (high), Height - 71 in, Weight - 231.6 lbs, Temperature - 97 f, Pulse - 62 /min, Respiration - 16 /min, O2 Sat - 97 %, Pain - 0, Fatigue - 0 and BP - 126/ 81 mm(hg). Physical Exam: AAox3. Skin intact. Imaging: Radiation therapy imaging related to accurate target localization (i.e. KV, MV and CBCT) was reviewed. Appropriate changes, if any, were made to ensure treatment accuracy. Plan: Continue XRT Chemotherapy on 08/16/2024 Signed by: Colten Sherman 08/14/2024 10:01:44 AM
[2024-08-16] MEDS: alteplase 1 mg/mL SDV 2 mL 2 MG INTRACATH (10:26)
[2024-08-16 10:42] LABS: Basophils % 0.9 %; Eosinophils # 0.2 10^3/uL (0.0-0.8); Eosinophils % 4.7 %; Hematocrit 39.7 % (37-53); Lymphocytes % 28.2 %; Mean Corpuscular HGB Conc 33.2 g/dL (30-55); Mean Corpuscular Hemoglobin 31.3 pg (27-33); Mean Corpuscular Volume 94.1 fl (82-101); Mean Platelet Volume 9.8 fL (7.4-10.4); Monocytes # 0.5 10^3/uL (0.2-0.9); Monocytes % 13.6 %; Neutrophils # 1.76 10^3/uL (1.8-7.7); Neutrophils % 52.3 %; Nucleated Red Blood Cells % 0 %; Platelet Count 122 10^3/cmm (157-399); Red Blood Count 4.22 10^6/uL (3.85-5.65); Red Cell Distribution Width 14.8 % (12.1-15.1); White Blood Count 3.37 10^3/uL (3.29-11.43)
[2024-08-16 11:06] LABS: Alanine Aminotransferase 13 U/L (0-41); Albumin Level 3.9 g/dL (3.5-5.2); Alkaline Phosphatase 89 U/L (40-130); Anion Gap 12.7 (5-19); Aspartate Amino Transferase 13 U/L (0-40); Blood Urea Nitrogen 11 mg/dL (8-23); Calcium 8.5 mg/dL (8.5-10.5); Carbon Dioxide 25 mmol/L (22-29); Chloride 107 mmol/L (98-107); Creatinine Clr Calc Pharmacy 117.2282; Glomerular Filtration Rate 97.6 mL/min (90-130); Glucose 133 mg/dL (65-115); Osmolality Calculated 293 mOsm/kg (285-295); Potassium 3.7 mmol/L (3.5-5.1); Sodium 141 mmol/L (136-145); Total Bilirubin 0.4 mg/dL (0.15-1.2); Total Protein 6.9 g/dL (6.6-8.7)
[2024-08-16] MEDS: dextrose 5% 250 ML 75 ML IV (12:19)
[2024-08-16] MEDS: dexamethasone 4 mg/mL INJ 5 mL 12 MG IVP (12:23)
[2024-08-16] MEDS: palonosetron 0.25 mg/5 mL SDV IVP (12:29)
[2024-08-16] MEDS: leucovorin 900 MG in dextrose 5% 250 ML 125 MG IV (13:02)
[2024-08-16] MEDS: oxaliplatin 192 MG in dextrose 5% 250 ML 144.2 MG IV (13:03)
[2024-08-16] MEDS: fluorouraciL 50 mg/ml MDV 100 mL 900 MG IVP (15:29)
[2024-08-16] MEDS: fluorouraciL 3,600 MG, elastomeric pump 1 PUMP in sodium chloride 0.9% (100 ml) 20 ML IV (15:40)
[2024-08-16 15:55] VITALS: BP 150/85; PULSE 60; RESP 18; TEMP 35.8; O2SAT 97
--- NOTE | 2024-08-22 09:34 | ONCRAD TMN_ITS ---
Radiation Oncology Weekly Treatment Management Patient: Ruben Fuchs Jr MR#: [id number] : 1960 Attending Physician: Colten Sherman Date of Service: 08/22/2024 Referring Physician(s) : Diagnosis: C15.9 - Malignant neoplasm of esophagus, unspecified, Diagnosed 07/04/2024 (Active) Radiotherapy to date: Course: esophagus, Treatment Site: Esophageal Ca, Ref. ID: [id number], Energy: 6X, Dose/Fx (cGy): 200, #Fx: , Dose Correction (cGy): 0, Total Dose Delivered (cGy): 5,000, Start Date: 07/19/2024, Elapsed Days: 34 Reason for visit: The patient is being seen today as part of their regularly scheduled weekly on treatment visits to assess for acute toxicities from radiotherapy. Review of Systems: Patient complains of some reflux at night and takes some medication that he does not know what it is. He is going to bring it in tomorrow if okay we may utilize Prilosec 40 daily. Weight stable and labs adequate. Vital Signs: Performed on 08/22/2024 9:13 AM BMI - 32.162 kg/m2 (high), Height - 71 in, Weight - 230.6 lbs, Temperature - 97.1 f, Pulse - 66 /min, Respiration - 16 /min, O2 Sat - 97 %, Pain - 0, Fatigue - 0 and BP - 138/ 66 mm(hg). Physical Exam: AAOx3. Skin intact. Imaging: Radiation therapy imaging related to accurate target localization (i.e. KV, MV and CBCT) was reviewed. Appropriate changes, if any, were made to ensure treatment accuracy. Plan: Continue XRT. Patient to bring in medication he is using for reflux and we will evaluate if we can add Prilosec 40. Signed by: Colten Sherman 08/22/2024 9:33:47 AM
[2024-08-30 09:15] LABS: Basophils % 1.3 %; Eosinophils # 0.1 10^3/uL (0.0-0.8); Eosinophils % 3.6 %; Hematocrit 41.5 % (37-53); Lymphocytes # 1.1 10^3/uL (0.8-4.8); Lymphocytes % 36.6 %; Mean Corpuscular HGB Conc 33.3 g/dL (30-55); Mean Corpuscular Hemoglobin 31.3 pg (27-33); Mean Corpuscular Volume 94.1 fl (82-101); Mean Platelet Volume 9.6 fL (7.4-10.4); Monocytes # 0.4 10^3/uL (0.2-0.9); Monocytes % 13.5 %; Neutrophils # 1.35 10^3/uL (1.8-7.7); Neutrophils % 44.7 %; Nucleated Red Blood Cells % 0 %; Platelet Count 81 10^3/cmm (157-399); Red Blood Count 4.41 10^6/uL (3.85-5.65); Red Cell Distribution Width 15.7 % (12.1-15.1); White Blood Count 3.03 10^3/uL (3.29-11.43)
[2024-08-30 09:37] LABS: Alanine Aminotransferase 15 U/L (0-41); Alkaline Phosphatase 86 U/L (40-130); Anion Gap 15.9 (5-19); Aspartate Amino Transferase 15 U/L (0-40); Blood Urea Nitrogen 11 mg/dL (8-23); Calcium 8.8 mg/dL (8.5-10.5); Carbon Dioxide 23 mmol/L (22-29); Chloride 104 mmol/L (98-107); Creatinine Clr Calc Pharmacy 102.8496; Globulin 3.2 g/dL (1.3-4.6); Glucose 107 mg/dL (65-115); Magnesium 2.1 mg/dL (1.7-2.3); Osmolality Calculated 288 mOsm/kg (285-295); Potassium 3.9 mmol/L (3.5-5.1); Sodium 139 mmol/L (136-145); Total Bilirubin 0.6 mg/dL (0.15-1.2); Total Protein 7.2 g/dL (6.6-8.7)
[2024-09-06 09:22] LABS: Basophils # 0.1 10^3/uL (0.0-0.1); Basophils % 1.2 %; Eosinophils # 0.2 10^3/uL (0.0-0.8); Eosinophils % 4.8 %; Hematocrit 41.4 % (37-53); Lymphocytes # 1.9 10^3/uL (0.8-4.8); Lymphocytes % 37.3 %; Mean Corpuscular HGB Conc 32.4 g/dL (30-55); Mean Corpuscular Hemoglobin 30.9 pg (27-33); Mean Corpuscular Volume 95.4 fl (82-101); Mean Platelet Volume 9.4 fL (7.4-10.4); Monocytes # 0.8 10^3/uL (0.2-0.9); Monocytes % 16.1 %; Neutrophils # 2.01 10^3/uL (1.8-7.7); Neutrophils % 39.8 %; Nucleated Red Blood Cells % 0 %; Platelet Count 153 10^3/cmm (157-399); Red Blood Count 4.34 10^6/uL (3.85-5.65); Red Cell Distribution Width 15.9 % (12.1-15.1); White Blood Count 5.04 10^3/uL (3.29-11.43)
[2024-09-06 09:44] LABS: Alanine Aminotransferase 13 U/L (0-41); Albumin Level 3.9 g/dL (3.5-5.2); Alkaline Phosphatase 91 U/L (40-130); Anion Gap 13.9 (5-19); Aspartate Amino Transferase 14 U/L (0-40); Blood Urea Nitrogen 9 mg/dL (8-23); Calcium 8.9 mg/dL (8.5-10.5); Carbon Dioxide 26 mmol/L (22-29); Chloride 105 mmol/L (98-107); Creatinine Clr Calc Pharmacy 91.1641; Globulin 3.4 g/dL (1.3-4.6); Glomerular Filtration Rate 75.2 mL/min (90-130); Glucose 97 mg/dL (65-115); Osmolality Calculated 291 mOsm/kg (285-295); Potassium 3.9 mmol/L (3.5-5.1); Sodium 141 mmol/L (136-145); Total Bilirubin 0.4 mg/dL (0.15-1.2); Total Protein 7.3 g/dL (6.6-8.7)
--- NOTE | 2024-09-06 11:49 | N.ONRD TS_ITS ---
Radiation Oncology Treatment Summary Patient: Ruben Fuchs Jr MR#: [id number] : 1960 Age: 63 Sex: Male Dictated by: Colten Sherman Date of Service: 08/22/2024 Referring Physician(s) : Diagnosis: C15.9 - Malignant neoplasm of esophagus, unspecified, Diagnosed 07/04/2024 (Active) Radiotherapy to Date: Course: esophagus, Treatment Site: Esophageal Ca, Ref. ID: [id number], Energy: 6X, Dose/Fx (cGy): 200, #Fx: , Dose Correction (cGy): 0, Total Dose Delivered (cGy): 5,000, Start Date: 07/19/2024, End Date: 08/22/2024, Elapsed Days: 34 Clinical Summary: The patient tolerated RT well. Plan: End of treatment today. Follow up in one month. Signed by: Colten Sherman>09/06/2024 11:48:12 AM <<Signature on File>>
--- NOTE | 2024-09-06 12:25 | PC.NURSE ---
Maria D miles had visit with no treatment today. Port a cath deaccessed.mm
== END 2024-09-09 23:59 | disposition home or self-care (01) ==
PROVIDERS: PCP Family Medicine; Visit Provider Internal Medicine
DX: Z53.9 Procedure and treatment not carried out, unspecified reason; C15.5 Malignant neoplasm of lower third of esophagus; E11.9 Type 2 diabetes mellitus without complications; I10 Essential (primary) hypertension; Z72.0 Tobacco use; Z71.6 Tobacco abuse counseling; Z79.899 Other long term (current) drug therapy
CPT/HCPCS: 36415; 36593; 77336; 77386; 80053; 83735; 85025; 96368; 96375; 96411; 96413; 96415; 96416; 96523; 99024; 99213; 99214; J0640; J1100; J2469; J2997; J7060; J9190; J9263

== ENCOUNTER → 2024-09-19 12:52 | Outpatient (BNVA) | payer OTHER, SELFPAY | PROVIDERS: PCP Family Medicine; Visit Provider Internal Medicine Cardiovascular Disease | DX: I25.10 Atherosclerotic heart disease of native coronary artery without angina pectoris (principal); I10 Essential (primary) hypertension; F17.210 Nicotine dependence, cigarettes, uncomplicated | CPT/HCPCS: 99214 ==

== ENCOUNTER 2024-10-04 08:13 | Emergency (ER) | payer OTHER, SELFPAY ==
[2024-10-04 08:26] VITALS: BP 131/85; PULSE 60; RESP 16; TEMP 36.8; O2SAT 98; BMI 20.9
--- OUTSIDE RECORDS SUMMARY | 2024-10-04 08:32 | XMS_ITS | Data Portability ---
Author Organization [place] - [facility] [place], ADMIN Address [address] [place] [id number] Care Team Providers Care Retail Presentation Specialist Name Role Phone [facility] Primary Care Marlene enriquez Assessment Encounter Date Assessment Date Assessment LastModified by Organization Details LastModified Time 05/17/2024 05/17/2024 63-year-old male presents to the clinic for consultation regarding distal esophageal adenocarcinoma. Patient had an EGD performed February and was found to have a distal esophageal adenocarcinoma extending from 40 cm to 42 cm in the settings of Fernandes's esophagus with low-grade/high-gr renetta dysplasia. Patient was sent here from the [place] to have an EUS possible FNA. Pt established with oncology at the [facility] today. I asked pt proposed treatment plan and he states that they were waiting on the EUS and then would possibly perform a surgical resection, per patient's family. Pt is a current everyday smoker and does not regularly consume alcohol. He has no known family history of GI cancers. Impression: 1. Distal esophageal adenocarcinoma 2. Previous EGD at [facility] 02/25/2024 3. Requested evaluation for EUS and possible FNA 4. Current everyday smoker 5. Has established with oncology at the [facility] Recommendations: 1. Schedule EGD and EUS with possible FNA 2. Follow up 2 weeks post EGD Not available 05/17/2024 17:07:02 Plan of Treatment Reminders Order Date Submit Date Provider Last Modified By Organization Details Last Modified Time Details Appointments None recorded. Lab None recorded. Referral None recorded. Procedures upper endoscopy procedure (EGD) (PROC) - Possible Procedures: Take biopsies if indicated, possible variceal banding, possible argon plasma coagulation , possible esophageal dilation, possible snare polypectomy .Pre-Proced ure Orders:1. Start 20 gauge or larger heparin/ayla ine lock, may use 0.5 ml of 1% lidocaine or topical anesthetic cream. Start IVF of Lactated Ringers at 80 ML/HR. Post Procedure:1 . Vitals every 5 minutes times 3, then every 30 minutes until discharge. 2. Remove IV when tolerating liquids well. 3. Discharge when meets criteria. 4. Schedule Clinic Follow up in 3 weeksCPT: 62830, 80162, 22685, 98289 2024 025 [facility], [address], [place], [address], 5 09:03:10 Surgeries surgical endoscopic ultrasound (SURG) 2024 025 [facility], [address], [place], [address], 5 09:04:12 Imaging None recorded. Medication Orders None recorded. Patient TargetsNo targets recorded. Patient InstructionsNo instructions recorded. Reason for Referral None Reported. Results Created Date Observation Date Name Description Value Unit Range Abnormal Flag Note LastModifiedBy Organization Detail LastModifiedTime Result Notes None recorded. Problems Name Problem SNOMED Code Status Onset Date Resolution Date Notes Provider Name and Address Organization Details Recorded Time Malignant tumor of esophagus 629823080 Active DIPESH Angel [place] - [facility] [place] 5 16:48:22 Problem Notes None recorded. Procedures Surgical History Date Name Laterality Status Provider Name and Address Organization Details Recorded Time 2024 SURGICAL ENDOSCOPIC ULTRASOUND (SURG) completed FE [facility]NARD [facility] [address] [facility] [place], [address], [place] [facility] [place] 5 13:20:06 2024 SURGICAL ENDOSCOPIC ULTRASOUND (SURG) completed FE MAYNARD NP [address] [facility], [place], [address], [place] [facility] [place] 5 14:06:50 2023 esophagogastroduodenoscopy completed Bull Palomo LPN [place] - [facility] [place] 5 16:49:35 Imaging Results None recorded. Procedure Notes None recorded. Medical Equipment None Reported. Allergies Allergen ID Allergen Name Allergen Category Reaction Reaction Severity Criticality Documentation Date Start Date Code Code System Note Provider Name and Address Organization Details Recorded Time 241703 lisinopri l medicatio n Not available Not available Not available 05/17/2024 52326 RxNorm DIPESH Angel [address] 16:31:11 Medications Name Sig Start Date Stop Date Status Note LastModified by Organization Details LastModified Time atorvastatin 20 mg tablet Take 0.5 tablets every day by oral route in the evening. active Not Available Not Available No t Available aspirin 325 mg tablet Take 1 tablet every day by oral route. active Not Available Not Available No t Available sucralfate 100 mg/mL oral suspension Take 5 mL 4 times a day by oral route. active Not Available Not Available No t Available amlodipine 2.5 mg tablet Take 3 tablets every day by oral route. active Not Available Not Available No t Available hydroxyzine HCl 50 mg tablet Take 1 tablet 3 times a day by oral route as needed. active Not Available Not Available No t Available pantoprazole 40 mg tablet,delayed release Take 1 tablet every day by oral route. active Not Available Not Available No t Available loratadine 10 mg tablet Take 1 tablet every day by oral route. active Not Available Not Available No t Available cholecalcifero l (vitamin D3) 25 mcg (1,000 unit) capsule Take 3 capsules every day by oral route. active Not Available Not Available No t Available Vitals Date Recorded Body height Body mass index (BMI) Body weight Oxygen saturation Oxygen saturation in Arterial blood by Pulse oximetry Heart rate Respiratory rate Systolic blood pressure Diastolic blood pressure Provider Name and Address Organization Details Last Updated DateTime 180.34 cm 33.7 kg/m2 361110. 2 g 97 % 97 % 55 /min 17 /min 140 mm[Hg] 83 mm[Hg] [facility]ESH Angel [facility] [place] 16:50:54 Social History Question Answer Notes LastModified by Organizat ion Details LastModified Time Tobacco Smoking Status Current Every Day Smoker DIPESH Angel [place] - [facility] [place] 05/17/2024 16:48:45 What Was The Date Of Your Most Recent Tobacco Screening? 05/17/2024 Information not available 05/17/2024 How Much Tobacco Do You Smoke? 1 PPD Information not available 05/17/2024 Has Tobacco Cessation Counseling Been Provided? Yes Information not available 05/17/2024 On What Date Was Tobacco Cessation Counseling Provided? 05/17/2024 Information not available 05/17/2024 Sex: Unknown Functional Status Question Answer Note LastModified by Organizat ion Details LastModified Time How many times per week do you consume alcohol? Less than 1 time per week Information not available 05/17/2024 Do you use any illicit or recreational drugs? No Information not available 05/17/2024 Do you or have you ever used any other forms of tobacco or nicotine? No Information not available 05/17/2024 What is your level of alcohol consumption? Occasional Information not available 05/17/2024 Mental Status None recorded. Family History Nothing Reported. Medical History No medical history recorded. Past Encounters Encounter ID Performer Location Encounter Start Date Encounter Closed Date Diagnosis/Indication Diagnosis SNOMED-CT Code Diagnosis ICD10 Code Diagnosis Note [id number] Derrick Long MD [facility] [address] [facility] [place] [address] 05/17/2024 16:23:55 05/17/2024 17:00:56 Adenocarcinoma of esophagus 406724958 C15.9 Health Concerns Section Related Observation LastModified by Organization Detai ls LastModified Time None Recorded Concern Status LastModified by Organization Details LastModified Time None Recorded Advance Directives Directive None Recorded Payers Insurance Date Sequence Insurance Name Policy Number Policy Ozuna Covered Member ID Ozuna Member ID Guarantor Name 06/09/2024 [facility] Ruben Fuchs [id number] Ruben Fuchs Notes Date Note Type Note Provider Name and Address Organization Details Recorded Time 05/17/2024 text/html 63-year-old male presents to the clinic for consultation regarding distal esophageal adenocarcinoma. Patient had an EGD performed February and was found to have a distal esophageal adenocarcinoma extending from 40 cm to 42 cm in the settings of Fernandes's esophagus with low-grade/high-gra de dysplasia. Patient was sent here from the [place] to have an EUS possible FNA. Pt established with oncology at the [facility] today. I asked pt proposed treatment plan and he states that they were waiting on the EUS and then would possibly perform a surgical resection, per patient's family. Pt is a current everyday smoker and does not regularly consume alcohol. He has no known family history of GI cancers. Impression:1. Distal esophageal adenocarcinoma2. Previous EGD at [facility] . Requested evaluation for EUS and possible FNA4. Current everyday smoker5. Has established with oncology at the [facility] Recommendations:1. Schedule EGD and EUS with possible FNA2. Follow up 2 weeks post EGD FE MAYNARD NP [address] [place], [address], [facility] [place] 05/17/2024 17:07:13
--- NOTE | 2024-10-04 09:21 | W.ED.EXTPRO ---
HPI - Extremity Problem General: Chief complaint: Extremity Injury, Lower Stated complaint: left leg wound Time Seen by Provider: 10/04/24 08:59 History of Present Illness: 64-year-old man with history of coronary artery disease, type 2 diabetes, esophageal cancer currently on chemotherapy who presents emergency room with a left wilson injury. He says this happened 2 days ago. He says he woke up today and was bleeding. He was having trouble getting the bleeding controlled. He says he is up-to-date on his tetanus Related Data Home Medications ?Medication ?Instructions ?Recorded ?Confirmed cholecalciferol (vitamin D3) 25 25 mcg PO DAILY 05/17/24 09/25/24 mcg (1,000 unit) capsule atorvastatin 20 mg tablet (Lipitor) 20 mg PO DAILY 05/23/24 09/25/24 hydroxyzine HCl 50 mg tablet 50 mg PO TID PRN Anxiety 05/23/24 09/25/24 loratadine 10 mg tablet (Allergy 10 mg PO DAILY 05/23/24 09/25/24 Relief (loratadine)) amlodipine 5 mg tablet 2.5 mg PO TID 06/07/24 09/25/24 Previous Rx's ?Medication ?Instructions ?Recorded pantoprazole 40 mg tablet,delayed 40 mg PO BID #14 tabs 09/06/24 release (Protonix) lidocaine-prilocaine 2.5 %-2.5 % 1 applic topical .COMPLEX #30 grams 09/12/24 topical cream lorazepam 1 mg tablet 0.5 - 1 mg (0.5 - 1 x 1 mg) PO Q6H 09/12/24 PRN severe nausea #30 tabs ondansetron HCl 4 mg tablet 4 mg PO Q6H PRN nausea and 09/12/24 vomiting #30 tabs prochlorperazine maleate 10 mg 10 mg PO Q4H PRN mild nausea #30 09/12/24 tablet (Compazine) tabs Allergies Allergy/AdvReac Type Severity Reaction Status Date / Time No Known Allergies Allergy Verified 09/25/24 08:49 Review of Systems Narrative: Constitutional symptoms: Negative except as documented in HPI. Skin symptoms: Negative except as documented in HPI. Eye symptoms: Negative except as documented in HPI. ENMT symptoms: Negative except as documented in HPI. Respiratory symptoms: Negative except as documented in HPI. Cardiovascular symptoms: Negative except as documented in HPI. Gastrointestinal symptoms: Negative except as documented in HPI. Genitourinary symptoms: Negative except as documented in HPI. Musculoskeletal symptoms: Negative except as documented in HPI. Neurologic symptoms: Negative except as documented in HPI. Psychiatric symptoms: Negative except as documented in HPI. Endocrine symptoms: Negative except as documented in HPI. PFSH ED PFSH: Medical History Thoracic aortic aneurysm Hypertension Thoracic aortic aneurysm without rupture Surgical History No pertinent past surgical history Family History Mother Diabetes Father Hypertension Social History Smoking and tobacco/nicotine status: current every day tobacco/nicotine user (1/2 pack a day) Alcohol intake: current Alcohol intake frequency: holidays/special occasions only Substance/Drug Use: former Date of last use: 1 YEAR AGO Lives independently: Yes Household members: none Marital status: service: Yes Current occupational status: disabled Physical Exam Narrative: EXAM NARRATIVE: General: Alert, no acute distress. Skin: warm and dry. Initially there was quite a bit of blood on the leg below a large dressing. Once this was removed and cleaned all I could find was a small puncture appearing scab wound on the mid wilson area Head: Normocephalic Neck: Trachea midline Eye: Extraocular movements are intact. Ears, nose, mouth and throat: Oral mucosa moist Respiratory: Respirations are non-labored Musculoskeletal: Normal ROM Gastrointestinal: Abdomen does not appear distended Neurological: Alert and oriented, No focal neurological deficit observed. Psychiatric: Cooperative, appropriate mood & affect. Course Vital Signs: Vital signs: Vital Signs Temperature 98.3 F 10/04/24 08:26 Pulse Rate 60 10/04/24 08:26 Respiratory Rate 16 10/04/24 08:26 Blood Pressure 131/85 10/04/24 08:26 Pulse Oximetry 98 10/04/24 08:26 Oxygen Delivery Me thod Room Air 10/04/24 08:26 MDM - Extremity (Nontraumatic) Medical Decision Making Assessment and plan: Puncture wound - Discharged home - Discussed plan with patient. Answered any questions. - Evaluation and treatment of this problem were appropriate in the emergency setting. No radiology studies performed this visit Discharge Plan Discharge Patient Disposition: Home Clinical Impression: Puncture wound of lower leg Condition: Stable Prescriptions: No Action amlodipine 5 mg tablet 2.5 mg PO TID hydroxyzine HCl 50 mg tablet 50 mg PO TID PRN (Reason: Anxiety) atorvastatin [Lipitor] 20 mg tablet 20 mg PO DAILY loratadine [Allergy Relief (loratadine)] 10 mg tablet 10 mg PO DAILY cholecalciferol (vitamin D3) 25 mcg (1,000 unit) capsule 25 mcg PO DAILY pantoprazole [Protonix] 40 mg tablet,delayed release (DR/EC) 40 mg PO BID Qty: 14 1RF lorazepam 1 mg tablet 0.5 - 1 mg PO Q6H PRN (Reason: severe nausea) Qty: 30 3RF lidocaine-prilocaine 2.5-2.5 % cream 1 applic topical .COMPLEX Qty: 30 2RF Rx Instructions: Apply quarter-size amount to port site 30 minutes prior to access; cover with cling wrap ondansetron HCl 4 mg tablet 4 mg PO Q6H PRN (Reason: nausea and vomiting) Qty: 30 3RF prochlorperazine maleate [Compazine] 10 mg tablet 10 mg PO Q4H PRN (Reason: mild nausea) Qty: 30 3RF Discharge Orders: Discharge ED (Routine); Ordered 10/04/24 Ordered By: Narda Cook Referrals: Anahi Blackwell MD [Primary Care Provider, Family Practice] Discharge Diet: Usual diet Discharge Activity: Increase activity as tolerated Patient Instructions: Puncture Wound (ED), Opioid Safety, Pain Management, Patient Portal & [place] Instructions Activity Restrictions/Additional Instructions: Thank you for choosing [facility] for your healthcare needs today. You have been screened and evaluated and felt safe for discharge. Health conditions do change or evolve sometimes and as such it is important that you follow up with your Primary Doctor to be re checked, 3-5 days is a general good time frame for follow up. You are always welcome to return to the ED for re assessment if your symptoms are worsening or you have new concerns Print Language: Bulgarian Coding Level of Care Code ED Management Instructor for Navdeep Barlow
[2024-10-04 10:13] VITALS: BP 121/77; PULSE 57; O2SAT 97
== END 2024-10-04 10:10 | disposition home or self-care (01) ==
PROVIDERS: Emergency Provider Emergency Medicine; PCP Family Medicine
DX: S81.832A Puncture wound without foreign body, left lower leg, initial encounter (principal); F17.210 Nicotine dependence, cigarettes, uncomplicated; X58.XXXA Exposure to other specified factors, initial encounter
CPT/HCPCS: 99281

== ENCOUNTER 2024-10-09 09:00 | Oncology outpatient (recurring) (ONCR) | payer OTHER, SELFPAY ==
[2024-09-11 07:43] LABS: Basophils # 0.1 10^3/uL (0.0-0.1); Basophils % 1.4 %; Eosinophils # 0.2 10^3/uL (0.0-0.8); Eosinophils % 3.3 %; Hematocrit 40.1 % (37-53); Lymphocytes % 28.6 %; Mean Corpuscular HGB Conc 32.4 g/dL (30-55); Mean Corpuscular Hemoglobin 30.9 pg (27-33); Mean Corpuscular Volume 95.2 fl (82-101); Mean Platelet Volume 9.8 fL (7.4-10.4); Monocytes # 0.6 10^3/uL (0.2-0.9); Monocytes % 8.8 %; Neutrophils # 4.03 10^3/uL (1.8-7.7); Neutrophils % 57.5 %; Nucleated Red Blood Cells % 0 %; Platelet Count 146 10^3/cmm (157-399); Red Blood Count 4.21 10^6/uL (3.85-5.65); Red Cell Distribution Width 15.6 % (12.1-15.1); White Blood Count 7.02 10^3/uL (3.29-11.43)
[2024-09-11 07:52] LABS: Alanine Aminotransferase 9 U/L (0-41); Albumin Level 3.9 g/dL (3.5-5.2); Alkaline Phosphatase 89 U/L (40-130); Anion Gap 13.9 (5-19); Aspartate Amino Transferase 12 U/L (0-40); Blood Urea Nitrogen 10 mg/dL (8-23); Calcium 8.8 mg/dL (8.5-10.5); Carbon Dioxide 25 mmol/L (22-29); Chloride 106 mmol/L (98-107); Globulin 3.3 g/dL (1.3-4.6); Glomerular Filtration Rate 97.3 mL/min (90-130); Glucose 124 mg/dL (65-115); Magnesium 1.8 mg/dL (1.7-2.3); Osmolality Calculated 292 mOsm/kg (285-295); Potassium 3.9 mmol/L (3.5-5.1); Sodium 141 mmol/L (136-145); Total Bilirubin 0.4 mg/dL (0.15-1.2); Total Protein 7.2 g/dL (6.6-8.7)
[2024-09-11] MEDS: palonosetron 0.25 mg/5 mL SDV IVP (09:48)
[2024-09-11] MEDS: dextrose 5% 250 ML 75 ML IV (09:48)
[2024-09-11] MEDS: dexamethasone 4 mg/mL INJ 5 mL 12 MG IVP (09:48)
[2024-09-11] MEDS: DEXTROSE 5% IV ×2 (10:29)
[2024-09-11] MEDS: OXALIPLATIN IV (10:29)
[2024-09-11] MEDS: LEUCOVORIN IV (10:29)
[2024-09-11] MEDS: fluorouraciL 50 mg/ml MDV 100 mL 900 MG IVP (12:48)
[2024-09-11] MEDS: fluorouraciL 3,550 MG, elastomeric pump 1 PUMP in sodium chloride 0.9% (100 ml) 21 ML IV (12:49)
[2024-09-11 12:59] VITALS: BP 125/82; PULSE 60; RESP 18; TEMP 36.1; O2SAT 96
[2024-09-25 08:01] LABS: Basophils % 0.8 %; Eosinophils # 0.3 10^3/uL (0.0-0.8); Eosinophils % 8.8 %; Hematocrit 36.4 % (37-53); Lymphocytes # 1.5 10^3/uL (0.8-4.8); Lymphocytes % 41.3 %; Mean Corpuscular HGB Conc 33.2 g/dL (30-55); Mean Corpuscular Hemoglobin 31.3 pg (27-33); Mean Corpuscular Volume 94.3 fl (82-101); Mean Platelet Volume 10.3 fL (7.4-10.4); Monocytes # 0.4 10^3/uL (0.2-0.9); Monocytes % 11.8 %; Neutrophils # 1.38 10^3/uL (1.8-7.7); Nucleated Red Blood Cells % 0 %; Platelet Count 72 10^3/cmm (157-399); Red Blood Count 3.86 10^6/uL (3.85-5.65); Red Cell Distribution Width 15.8 % (12.1-15.1); White Blood Count 3.73 10^3/uL (3.29-11.43)
[2024-09-25 08:19] LABS: Alanine Aminotransferase 14 U/L (0-41); Albumin Level 3.9 g/dL (3.5-5.2); Alkaline Phosphatase 89 U/L (40-130); Anion Gap 12.7 (5-19); Aspartate Amino Transferase 16 U/L (0-40); Blood Urea Nitrogen 9 mg/dL (8-23); Calcium 8.7 mg/dL (8.5-10.5); Carbon Dioxide 26 mmol/L (22-29); Chloride 106 mmol/L (98-107); Globulin 3.2 g/dL (1.3-4.6); Glomerular Filtration Rate 113.5 mL/min (90-130); Glucose 108 mg/dL (65-115); Osmolality Calculated 291 mOsm/kg (285-295); Potassium 3.7 mmol/L (3.5-5.1); Sodium 141 mmol/L (136-145); Total Bilirubin 0.5 mg/dL (0.15-1.2); Total Protein 7.1 g/dL (6.6-8.7)
[2024-09-25] MEDS: dextrose 5% 250 ML 75 ML IV (10:30)
[2024-09-25] MEDS: palonosetron 0.25 mg/5 mL SDV IVP (10:32)
[2024-09-25] MEDS: dexamethasone 4 mg/mL INJ 5 mL 12 MG IVP (10:34)
[2024-09-25] MEDS: DEXTROSE 5% IV (11:30)
[2024-09-25] MEDS: OXALIPLATIN IV (11:30)
[2024-09-25] MEDS: leucovorin 900 MG in dextrose 5% 250 ML 140 MG IV (11:30)
[2024-09-25] MEDS: fluorouraciL 50 mg/ml MDV 100 mL 900 MG IVP (14:02)
[2024-09-25] MEDS: fluorouraciL 3,600 MG, elastomeric pump 1 PUMP in sodium chloride 0.9% (100 ml) 20 ML IV (14:10)
[2024-09-25 14:46] VITALS: BP 138/85; PULSE 60; TEMP 36.3; O2SAT 94
--- NOTE | 2024-09-26 13:18 | ONCRAD EPV_ITS ---
Radiation Oncology Established Patient Visit Patient: Ruben Fuchs Jr [id number] : 1960 Age: 64 Sex: Male Dictated by: Dr. Wilmar Helton Date of Service: 09/25/2024 Referring Physician(s) : Diagnosis: C15.9 - Malignant neoplasm of esophagus, unspecified, Diagnosed 07/04/2024 (Active) St IIA(T3, N0, M0) adenocarcinoma of GE junction. Radiotherapy to Date: Course: esophagus, Treatment Site: Esophageal Ca, Ref. ID: [id number], Energy: 6X, Dose/Fx (cGy): 200, #Fx: , Dose Correction (cGy): 0, Total Dose Delivered (cGy): 5,000, Start Date: 07/19/2024, End Date: 08/22/2024, Elapsed Days: 34 Current History: Swallowing is a lot better. No longer cuts meat up into small pieces. No pain on swallowing. No N, V or abd pain. He initially lost weight while on treatment from 240 to 225 pounds . Weight now stable. Inactive and watches TV. Living independently in trailer on friend???s property. Trying to quit smoking . Now using nicotine lozenge and smoking reduced from 1 ppd to ??? ppd. Stable left arm tremor and frustrated from ongoing short term memory loss. Current Medications: amlodipine 2.5 mg PO TID atorvastatin (Lipitor) 20 mg PO DAILY cholecalciferol (vitamin D3) 25 mcg PO DAILY hydroxyzine HCl 50 mg PO TID PRN lidocaine-prilocaine 2.5-2.5 % Apply quarter-size amount to port site 30 minutes prior to access; cover with cling wrap loratadine (Allergy Relief (loratadine)) 10 mg PO DAILY lorazepam 0.5 - 1 mg (0.5 - 1 x 1 mg) PO Q6H PRN ondansetron HCl 4 mg PO Q6H PRN pantoprazole (Protonix) 40 mg PO BID prochlorperazine maleate (Compazine) 10 mg PO Q4H PRN Allergies: No known allergies Current Complaints / Review of Systems: . Vital Signs: Performed on 09/25/2024 8:52 AM BMI - 31.856 kg/m2 (high), Height - 71 in, Weight - 228.4 lbs, Temperature - 97.7 f, Pulse - 53 /min (low), Respiration - 17 /min, O2 Sat - 96 %, Pain - 0, Fatigue - 0 and BP - 133/ 79 mm(hg). Physical Exam: General: Alert and oriented x 3. No acute distress. No cervical or supraclav adenopathy. Abd benign. No pedal edema Performance Status: ECOG PS 0 Lab: None Pathology: Primary, c15.9 - malignant neoplasm of esophagus, unspecified, Diagnosed 07/04/2024 (active) . Imaging: none Impression: Doing well one month post treatment. FU PET/CT in 2 months. Signed by: 09/25/2024 9:35:34 AM <<Signature on File>> Time spent with patient: CPT Code: CPT Code:
[2024-10-09 08:47] LABS: Basophils % 1.3 %; Eosinophils # 0.1 10^3/uL (0.0-0.8); Eosinophils % 5.9 %; Hematocrit 35.5 % (37-53); Lymphocytes # 1.2 10^3/uL (0.8-4.8); Lymphocytes % 51.1 %; Mean Corpuscular HGB Conc 33.2 g/dL (30-55); Mean Corpuscular Hemoglobin 31.6 pg (27-33); Mean Corpuscular Volume 95.2 fl (82-101); Mean Platelet Volume 10.1 fL (7.4-10.4); Monocytes # 0.4 10^3/uL (0.2-0.9); Monocytes % 15.6 %; Neutrophils % 25.7 %; Nucleated Red Blood Cells % 0 %; Platelet Count 47 10^3/cmm (157-399); Red Blood Count 3.73 10^6/uL (3.85-5.65); Red Cell Distribution Width 17.2 % (12.1-15.1); White Blood Count 2.37 10^3/uL (3.29-11.43)
[2024-10-09 09:27] LABS: Carcinoembryonic Antigen 2.2 ng/mL (0.0-4.7)
[2024-10-09 09:39] LABS: Alanine Aminotransferase 13 U/L (0-41); Albumin Level 3.8 g/dL (3.5-5.2); Alkaline Phosphatase 98 U/L (40-130); Anion Gap 15.7 (5-19); Aspartate Amino Transferase 16 U/L (0-40); Blood Urea Nitrogen 10 mg/dL (8-23); Calcium 8.7 mg/dL (8.5-10.5); Carbon Dioxide 24 mmol/L (22-29); Chloride 107 mmol/L (98-107); Globulin 3.4 g/dL (1.3-4.6); Glomerular Filtration Rate 97.3 mL/min (90-130); Glucose 110 mg/dL (65-115); Osmolality Calculated 296 mOsm/kg (285-295); Potassium 3.7 mmol/L (3.5-5.1); Sodium 143 mmol/L (136-145); Total Bilirubin 0.5 mg/dL (0.15-1.2); Total Protein 7.2 g/dL (6.6-8.7)
[2024-10-09 10:14] LABS: Neutrophils # 0.61 10^3/uL (1.8-7.7)
[2024-10-09 10:15] LABS: Slide Review Slide Review Perform
== END 2024-10-09 23:59 | disposition home or self-care (01) ==
PROVIDERS: Internal Medicine; Nurse Practitioner; PCP Family Medicine; Visit Provider Internal Medicine Medical Oncology
DX: Z53.9 Procedure and treatment not carried out, unspecified reason; C15.5 Malignant neoplasm of lower third of esophagus; Z72.0 Tobacco use; R03.0 Elevated blood-pressure reading, without diagnosis of hypertension; E11.9 Type 2 diabetes mellitus without complications; I10 Essential (primary) hypertension; D70.1 Agranulocytosis secondary to cancer chemotherapy; T45.1X5A Adverse effect of antineoplastic and immunosuppressive drugs, initial encounter; D69.6 Thrombocytopenia, unspecified
CPT/HCPCS: 80053; 82378; 83735; 85025; 96368; 96375; 96411; 96413; 96415; 96416; 96523; 99214; J0640; J1100; J2469; J7060; J9190; J9263

== ENCOUNTER 2024-11-01 09:45 | Oncology outpatient (recurring) (ONCR) | payer OTHER, SELFPAY ==
[2024-10-16 08:26] LABS: Hematocrit 36.5 % (37-53); Hemoglobin 11.90 g/dL (11.27-16.99); Mean Corpuscular HGB Conc 32.6 g/dL (30-55); Mean Corpuscular Hemoglobin 31.7 pg (27-33); Mean Corpuscular Volume 97.3 fl (82-101); Nucleated Red Blood Cells % 0 %; Platelet Count 171 10^3/cmm (157-399); Red Blood Count 3.75 10^6/uL (3.85-5.65); White Blood Count 5.58 10^3/uL (3.29-11.43)
[2024-10-16 08:44] LABS: Alanine Aminotransferase 8 U/L (0-41); Albumin Level 3.9 g/dL (3.5-5.2); Alkaline Phosphatase 96 U/L (40-130); Anion Gap 12.9 (5-19); Aspartate Amino Transferase 14 U/L (0-40); Blood Urea Nitrogen 12 mg/dL (8-23); Calcium 8.9 mg/dL (8.5-10.5); Carbon Dioxide 26 mmol/L (22-29); Chloride 105 mmol/L (98-107); Creatinine Clr Calc Pharmacy 100.8680; Globulin 3.6 g/dL (1.3-4.6); Glucose 113 mg/dL (65-115); Osmolality Calculated 291 mOsm/kg (285-295); Potassium 3.9 mmol/L (3.5-5.1); Sodium 140 mmol/L (136-145); Total Protein 7.5 g/dL (6.6-8.7)
[2024-10-16] MEDS: dexamethasone 4 mg/mL INJ 5 mL 12 MG IVP (09:53)
[2024-10-16] MEDS: oxaliplatin 188 MG in dextrose 5% 250 ML 143.8 MG IV (10:20)
[2024-10-16] MEDS: DEXTROSE 5% IV (10:20)
[2024-10-16] MEDS: LEUCOVORIN IV (10:20)
[2024-10-16] MEDS: fluorouraciL 50 mg/ml MDV 100 mL 900 MG IVP (12:47)
[2024-10-16] MEDS: fluorouraciL 3,550 MG, elastomeric pump 1 PUMP in sodium chloride 0.9% (100 ml) 21 ML IV (13:03)
[2024-10-16 13:06] VITALS: BP 135/78; PULSE 61; RESP 16; TEMP 36.4; O2SAT 94
[2024-10-18 08:30] VITALS: BP 112/75; PULSE 61; RESP 16; RESP 17; TEMP 36.4; O2SAT 95
--- NOTE | 2024-10-19 08:17 | CT_ITS ---
WS: [id number] CT HEAD TECHNIQUE: Noncontrast CT of the head obtained from the skullbase to the vertex. CLINICAL INFORMATION: LEFT HAND TREMOR/HX ESOPHAGUS CA W/METS COMPARISON: 2020 DLP: 1071.[address] scans at [facility] use at least one of these dose optimization techniques: automated exposure control; mA and/or kV adjustment per patient size (includes targeted exams where dose is matched to clinical indication); or iterative reconstruction. FINDINGS: No evidence of intracranial hemorrhage or mass effect. Ventricular system and basal cisterns are patent. Moderate small vessel changes with moderate parenchymal volume loss. No extra-axial fluid collections. No evidence of mass or mass effect. 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 Vascular calcification. Paranasal sinuses and mastoid air cells are well aerated. .Normal visualized soft tissues. CT/CT head wo con* [id number] IMPRESSION: 1. No evidence of intracranial hemorrhage or mass effect. 2. Moderate small vessel changes with moderate parenchymal volume loss. 3. 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 4. Vascular calcification. 5. No acute intracranial findings.
[2024-11-01 09:50] LABS: Hematocrit 35.4 % (37-53); Hemoglobin 11.60 g/dL (11.27-16.99); Mean Corpuscular HGB Conc 32.8 g/dL (30-55); Mean Corpuscular Hemoglobin 32.0 pg (27-33); Mean Corpuscular Volume 97.8 fl (82-101); Nucleated Red Blood Cells % 0 %; Platelet Count 87 10^3/cmm (157-399); Red Blood Count 3.62 10^6/uL (3.85-5.65); White Blood Count 4.55 10^3/uL (3.29-11.43)
[2024-11-01 10:06] LABS: Alanine Aminotransferase 14 U/L (0-41); Albumin Level 4.1 g/dL (3.5-5.2); Alkaline Phosphatase 89 U/L (40-130); Anion Gap 13.7 (5-19); Aspartate Amino Transferase 17 U/L (0-40); Blood Urea Nitrogen 12 mg/dL (8-23); Calcium 8.9 mg/dL (8.5-10.5); Carbon Dioxide 24 mmol/L (22-29); Chloride 108 mmol/L (98-107); Creatinine Clr Calc Pharmacy 113.4764; Globulin 3.2 g/dL (1.3-4.6); Glucose 121 mg/dL (65-115); Osmolality Calculated 295 mOsm/kg (285-295); Potassium 3.7 mmol/L (3.5-5.1); Sodium 142 mmol/L (136-145); Total Protein 7.3 g/dL (6.6-8.7)
== END 2024-11-09 23:59 | disposition home or self-care (01) ==
PROVIDERS: Internal Medicine Medical Oncology; Nurse Practitioner Family; PCP Family Medicine; Visit Provider Internal Medicine
DX: Z53.9 Procedure and treatment not carried out, unspecified reason; Z08 Encounter for follow-up examination after completed treatment for malignant neoplasm; Z85.01 Personal history of malignant neoplasm of esophagus; E11.9 Type 2 diabetes mellitus without complications; F17.210 Nicotine dependence, cigarettes, uncomplicated; Z95.828 Presence of other vascular implants and grafts; D64.9 Anemia, unspecified; G20.C Parkinsonism, unspecified; Z92.21 Personal history of antineoplastic chemotherapy; Z92.3 Personal history of irradiation
CPT/HCPCS: 36591; 70450; 80053; 85025; 96368; 96375; 96409; 96413; 96415; 96416; 96523; 99213; 99214; J0640; J1100; J2469; J7060; J9190; J9263

== ENCOUNTER 2024-11-29 13:00 | Oncology outpatient (recurring) (ONCR) | payer OTHER, SELFPAY ==
--- NOTE | 2024-11-17 10:30 | PETR_ITS ---
PROCEDURE INFORMATION: Exam: PET/CT Skull Base to Mid-thigh Exam date and time: 11/17/2024 10:51 AM Age: 64 years old Clinical indication: Condition or disease; Primary cancer: Esophageal carcinoma; Follow-up oncological assessment; Additional info: Esophageal carcinoma S/P chemo radiation completed 08/22/2024 LABS AND CLINICAL REPORTS: Glucose: 103 mg/dl Treatment strategy for malignancy (PET staging): Restaging (PS) TECHNIQUE: Imaging protocol: Following at least four-hour fasting and following the injection of radiopharmaceutical, low dose CT images were obtained. Then, PET images were obtained. Attenuation corrected images were constructed using the CT scan. Fused images of PET and CT were reviewed. The standardized uptake values (SUV) reported below are maximum values within a region of interest, expressed in gm/ml. Exam includes orbital meatal line to mid-thigh. SUV normalization method: BodyWeight Radiopharmaceutical: 14.08 mCi F-18 FDG (Fluorodeoxyglucose), IV. Time of imaging post radiopharmaceutical administration: 48 minutes Injection site: right ac COMPARISON: 1. CT chest w con* [id number] 06/01/2024 11:53 AM 2. PT PET skull to thigh INIT [id number] 06/09/2024 1:57 PM FINDINGS: Limitations: Extravasated radiotracer along the left forearm and hand decreases bioavailability, which may result in lower SUV values. Tubes, catheters and devices: Right chest port terminates at the lower SVC. Brain: Visualized brain has normal physiologic uptake. Pharynx: No abnormal uptake. Larynx: No abnormal uptake. Lungs, pleura and trachea: No abnormal uptake. Left lower lobe calcified granuloma. Heart: Normal physiologic uptake. Coronary arteries: Heavy coronary artery calcification. Mediastinal space: No abnormal uptake. Esophagus: Decreased distal esophageal thickening and FDG uptake with SUV max 6.4 on axial image 156, previously 18.2. Liver: No abnormal uptake. Gallbladder and biliary ducts: No abnormal uptake. Pancreas: No abnormal uptake. Spleen: No abnormal uptake. Adrenal glands: No abnormal uptake. Kidneys and ureters: Normal physiologic uptake. Small bilateral nonobstructive calculi. Stomach and bowel: No abnormal uptake. Reproductive: Prostatomegaly with broad area of FDG uptake showing SUV max 4.7 on axial image 273 (previously 3.7) that appears mildly asymmetric. Vasculature: No abnormal uptake. Moderate systemic atherosclerotic calcification with stable fusiform infrarenal abdominal aorta aneurysm measuring 3.8 cm. Lymph nodes: Developed FDG uptake at nonenlarged left superior mediastinal node shows SUV max 4.1 on axial image 91, located between the proximal left carotid and subclavian arteries. Otherwise no lymphadenopathy in the head, neck, chest, abdomen, pelvis, and extremities. Calcified mediastinal and left hilar nodes in keeping with sequela of old granulomatous disease. Skeleton: No abnormal uptake in the visualized axial and appendicular skeleton. Degenerative change along the spine, shoulders and sacroiliac joints. Soft tissues: No abnormal uptake in the visualized head, neck, chest, abdomen, pelvis, and extremities. Small fat containing left inguinal hernia. METRICS: Mediastinal blood pool: SUV mean 1.9 Liver uptake: SUV mean 2.3 PET/PET skull to thigh SUBS [id number] IMPRESSION: 1. Partial treatment response with decreased distal esophageal thickening and metabolic activity. 2. Developed mild FDG uptake at nonenlarged left superior mediastinal lymph node is favored reactive, metastasis thought less likely but difficult to entirely exclude. 3. Prostatomegaly with broad area of mildly increased FDG uptake that appears mildly asymmetric. This may be inflammatory, neoplasm not excluded. 4. Bilateral nonobstructive nephrolithiasis. 5. Additional chronic and incidental findings as above, to include atherosclerosis with stable 3.8 cm infrarenal abdominal aortic aneurysm and heavy coronary artery calcification.
[2024-11-29 12:39] LABS: White Blood Count 6.35 10^3/uL (3.29-11.43)
[2024-11-29 12:40] LABS: Hematocrit 37.3 % (37-53); Hemoglobin 12.30 g/dL (11.27-16.99); Mean Corpuscular HGB Conc 33.0 g/dL (30-55); Mean Corpuscular Hemoglobin 32.2 pg (27-33); Mean Corpuscular Volume 97.6 fl (82-101); Nucleated Red Blood Cells % 0 %; Platelet Count 169 10^3/cmm (157-399); Red Blood Count 3.82 10^6/uL (3.85-5.65)
[2024-11-29 13:07] LABS: Carcinoembryonic Antigen 1.7 ng/mL (0.0-4.7)
[2024-11-29 13:18] LABS: Alanine Aminotransferase 10 U/L (0-41); Albumin Level 4.3 g/dL (3.5-5.2); Alkaline Phosphatase 80 U/L (40-130); Anion Gap 14.9 (5-19); Aspartate Amino Transferase 13 U/L (0-40); Blood Urea Nitrogen 15 mg/dL (8-23); Calcium 9.1 mg/dL (8.5-10.5); Carbon Dioxide 23 mmol/L (22-29); Chloride 107 mmol/L (98-107); Creatinine Clr Calc Pharmacy 101.5064; Globulin 3.2 g/dL (1.3-4.6); Glucose 141 mg/dL (65-115); Magnesium 1.9 mg/dL (1.7-2.3); Osmolality Calculated 295 mOsm/kg (285-295); Potassium 3.9 mmol/L (3.5-5.1); Sodium 141 mmol/L (136-145); Total Protein 7.5 g/dL (6.6-8.7)
== END 2024-12-10 23:59 | disposition home or self-care (01) ==
PROVIDERS: PCP Family Medicine; Visit Provider Internal Medicine
DX: Z08 Encounter for follow-up examination after completed treatment for malignant neoplasm; Z85.01 Personal history of malignant neoplasm of esophagus; F17.210 Nicotine dependence, cigarettes, uncomplicated; N40.0 Benign prostatic hyperplasia without lower urinary tract symptoms; K22.9 Disease of esophagus, unspecified; D64.9 Anemia, unspecified; Z92.3 Personal history of irradiation; Z92.21 Personal history of antineoplastic chemotherapy; Z95.828 Presence of other vascular implants and grafts; Z53.9 Procedure and treatment not carried out, unspecified reason
CPT/HCPCS: 36591; 78815; 80053; 82378; 83615; 83735; 85025; 99213; A9552

== ENCOUNTER 2025-01-16 11:28 | Oncology outpatient (recurring) (ONCR) | payer OTHER, SELFPAY ==
--- NOTE | 2025-01-16 11:34 | CT_ITS ---
WS: [id number] LDCT LUNG CANCER SCREENING TECHNIQUE: Noncontrast CT of the chest with coronal and sagittal reformatted images. CLINICAL INFORMATION: HX OF NICOTINE DEPENDENCE,CIGARETTES COMPARISON: CT chest 06/01/2024 DLP: 112.29 mGy.cm DIvol: Mean CTDIvol: 2.40 (mGy) All CT scans at [facility] use at least one of these dose optimization techniques: automated exposure control; mA and/or kV adjustment per patient size (includes targeted exams where dose is matched to clinical indication); or iterative reconstruction. FINDINGS: Mild chronic emphysematous change. No new suspicious pulmonary parenchymal abnormalities. Thickening distal esophagus and GE junction compatible with history of esophageal cancer. Aortic calcification. Coronary calcification. No mediastinal or hilar lymphadenopathy. Normal size mediastinal mediastinal lymph nodes. No axillary lymphadenopathy. Stable small bilateral adrenal nodules. Nephroli thiasis. Increased attenuation partially visualized small renal cortical lesions likely hemorrhagic or proteinaceous cysts Note this noncontrast low-dose screening study is not a substitute for PET/CT or contrast-enhanced chest CT for oncology surveillance, considering current history of esophageal cancer CT/CT lung screening [id number] IMPRESSION: LUNG-RADS: 1-Negative FOLLOW UP: 12 Month: Continue annual screening with LDCT
== END 2025-02-09 23:59 | disposition home or self-care (01) ==
LOC: ONCMED 11:29
PROVIDERS: PCP Family Medicine; Visit Provider Internal Medicine
DX: Z12.2 Encounter for screening for malignant neoplasm of respiratory organs (principal); Z87.891 Personal history of nicotine dependence; J43.9 Emphysema, unspecified; R93.89 Abnormal findings on diagnostic imaging of other specified body structures; I70.0 Atherosclerosis of aorta; I25.10 Atherosclerotic heart disease of native coronary artery without angina pectoris; E27.8 Other specified disorders of adrenal gland; N20.0 Calculus of kidney; N28.89 Other specified disorders of kidney and ureter; Z85.01 Personal history of malignant neoplasm of esophagus
CPT/HCPCS: 71271

== ENCOUNTER 2025-02-23 08:12 | Oncology outpatient (recurring) (ONCR) | payer OTHER, SELFPAY ==
--- NOTE | 2025-02-23 08:30 | PETR_ITS ---
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 Then, PET images were obtained. Attenuation corrected images were constructed using the CT scan. Fused images of PET and CT were reviewed. The standardized uptake values (SUV) reported below are maximum values within a region of interest, expressed in gm/ml. Exam includes orbital meatal line to mid-thigh. SUV normalization method: BodyWeight Radiopharmaceutical: 10.2 mCi F-18 FDG (Fluorodeoxyglucose), IV. Time of imaging post radiopharmaceutical administration: 46 minutes Injection site: right ac COMPARISON: 1. PT PET skull to thigh [id number] 11/17/2024 10:51 AM 2. PET-CT dated 06/09/2024. FINDINGS: Tubes, catheters and devices: Right chest wall chemo port with tip at the cavoatrial junction. Brain: Visualized brain has normal physiologic uptake. Pharynx: No abnormal uptake. Larynx: No abnormal uptake. Lungs, pleura and trachea: No abnormal uptake. Heart: Normal physiologic uptake. Severe coronary artery calcifications. Mediastinal space: No abnormal uptake. Esophagus: Further decreased distal esophageal wall thickening, with resolution of previously noted increased FDG uptake (previously 6.4 on 11/17/2024 and 18.2 on 06/09/2024). Liver: No abnormal uptake. Gallbladder and biliary ducts: No abnormal uptake. Pancreas: No abnormal uptake. Spleen: No abnormal uptake. Adrenal glands: No abnormal uptake. Kidneys and ureters: Normal physiologic uptake. Bilateral nonobstructive nephrolithiasis. Stomach and bowel: No abnormal uptake. Reproductive: Prostatomegaly, measuring 5.8 cm in largest transverse dimension. Resolution of previously noted central increased FDG uptake, which was likely artifactual due to urethral uptake. Vasculature: Stable 3.7 cm infrarenal abdominal aortic aneurysm. Lymph nodes: Resolved previously noted FDG avid left superior mediastinal lymph node. New mildly increased uptake within the right hilar region, maximum SUV 3.0. This is favored to be reactive. Otherwise no FDG avid lymphadenopathy. Skeleton: No abnormal uptake in the visualized axial and appendicular skeleton. Soft tissues: No abnormal uptake in the visualized head, neck, chest, abdomen, pelvis, and extremities. METRICS: Mediastinal blood pool: Mean SUV of 2.0. Liver uptake: Mean SUV of 2.3 PET/PET skull to thigh [id number] IMPRESSION: 1. Further decreased distal esophageal wall thickening, with resolution of previously noted FDG uptake, consistent with positive treatment response. No residual esophageal FDG uptake in the current examination. 2. No functional or anatomic evidence of metastatic disease within the head/neck, chest, abdomen or pelvis. 3. Otherwise stable ancillary findings as above.
== END 2025-03-11 23:59 | disposition home or self-care (01) ==
PROVIDERS: PCP Family Medicine; Visit Provider Internal Medicine
DX: C15.5 Malignant neoplasm of lower third of esophagus (principal); K22.89 Other specified disease of esophagus; Z95.828 Presence of other vascular implants and grafts; I25.10 Atherosclerotic heart disease of native coronary artery without angina pectoris; N20.0 Calculus of kidney; N40.0 Benign prostatic hyperplasia without lower urinary tract symptoms; I71.43 Infrarenal abdominal aortic aneurysm, without rupture
CPT/HCPCS: 78815; A9552

== ENCOUNTER 2025-03-21 13:26 | Oncology outpatient (recurring) (ONCR) | payer OTHER, SELFPAY ==
[2025-03-21 13:52] LABS: Hematocrit 40.4 % (37-53); Hemoglobin 13.30 g/dL (11.27-16.99); Mean Corpuscular HGB Conc 32.9 g/dL (30-55); Mean Corpuscular Hemoglobin 30.7 pg (27-33); Mean Corpuscular Volume 93.3 fl (82-101); Nucleated Red Blood Cells % 0 %; Platelet Count 178 10^3/cmm (157-399); Red Blood Count 4.33 10^6/uL (3.85-5.65); White Blood Count 7.21 10^3/uL (3.29-11.43)
[2025-03-21 14:16] LABS: Alanine Aminotransferase 15 U/L (0-41); Albumin Level 4.4 g/dL (3.5-5.2); Alkaline Phosphatase 78 U/L (40-130); Anion Gap 14.0 (5-19); Aspartate Amino Transferase 16 U/L (0-40); Blood Urea Nitrogen 13 mg/dL (8-23); Calcium 9.1 mg/dL (8.5-10.5); Carbon Dioxide 25 mmol/L (22-29); Chloride 105 mmol/L (98-107); Globulin 3.3 g/dL (1.3-4.6); Glucose 86 mg/dL (65-115); Osmolality Calculated 289 mOsm/kg (285-295); Potassium 4.0 mmol/L (3.5-5.1); Sodium 140 mmol/L (136-145); Total Protein 7.7 g/dL (6.6-8.7)
== END 2025-04-11 23:59 | disposition home or self-care (01) ==
PROVIDERS: Internal Medicine Medical Oncology; PCP Family Medicine; Visit Provider Internal Medicine
DX: Z08 Encounter for follow-up examination after completed treatment for malignant neoplasm (principal); Z85.01 Personal history of malignant neoplasm of esophagus; N40.0 Benign prostatic hyperplasia without lower urinary tract symptoms; F17.200 Nicotine dependence, unspecified, uncomplicated; Z92.3 Personal history of irradiation; Z92.21 Personal history of antineoplastic chemotherapy; Z95.828 Presence of other vascular implants and grafts; D64.9 Anemia, unspecified
CPT/HCPCS: 80053; 85025; 99213

== ENCOUNTER → 2025-03-23 09:23 | Outpatient (BNVA) | payer OTHER, SELFPAY | PROVIDERS: PCP Family Medicine; Visit Provider Internal Medicine Cardiovascular Disease | DX: Z51.81 Encounter for therapeutic drug level monitoring (principal); Z79.899 Other long term (current) drug therapy; I10 Essential (primary) hypertension; F17.200 Nicotine dependence, unspecified, uncomplicated | CPT/HCPCS: 99214 ==

== ENCOUNTER → 2025-03-29 09:42 | Outpatient (BNVA) | payer OTHER, SELFPAY | PROVIDERS: PCP Family Medicine; Visit Provider Student in an Organized Health Care Education/Training Program | DX: Z95.828 Presence of other vascular implants and grafts (principal) | CPT/HCPCS: 99214 ==